=== PATIENT | male | born 1940 | race Caucasian/White ===

== ENCOUNTER 2021-07-17 11:30 | Inpatient (IN) | payer MEDICARE ==
[~2021-07-17] VITALS: Ht 185.4 cm; Wt 76.3 kg
[2021-07-17] MEDS ORDERED: MAG HYDROX/AL HYDROX/SIMETH 30 ML ORAL.SUSP PO PRN (12:00)
[2021-07-17] MEDS ORDERED: ACETAMINOPHEN 325 MG TABLET PO PRN (12:00)
[2021-07-17] MEDS ORDERED: METHYL SALICYLATE/MENTHOL TOPICAL OINTMENT 57GM TUBE. TP PRN (12:00)
[2021-07-17] MEDS ORDERED: MAGNESIUM HYDROXIDE 2,400 MG/30 ML ORAL.SUSP. PO PRN (12:00)
[2021-07-17] MEDS ORDERED: QUET150T2 PO (12:11)
[2021-07-17] MEDS ORDERED: DIVA500T4 PO (12:11)
[2021-07-17 12:21] VITALS: BP 107/63
[2021-07-17 13:49] VITALS: BP 107/63
--- NOTE | 2021-07-17 14:12 | NUR ---
Admission Note with Justification for Admission to [facility] Patient admitted to [facility] for protective oversight for emergency stabilization of acute psychiatric crisis. Pt admitted from: [facility] Mode of arrival: Facility Transport Accompanied By: Facility staff Precipitating behaviors that initiated intake and admission: Hitting and kicking staff, attempting to climb fence to elope, agitation, verbally aggressive, paranoid, refusing showers Description of failure of out patient attempts at stabilization in previous setting list behavior and medication trials: Redirection, jeancarlos, outpatient psych, ED (07/02/21) Behaviors and assessment findings upon admission: Pt admitted and introduced to unit. He has superficial scratches on his bilateral hands d/t digging his fingernails into his skin during his transport to [facility]. He was provided with a boxed lunch and shortly after he retired to bed. He woke briefly for assessment but soon retired back to bed, not wanting to participate. Absent of pain or distress at this time. Absent of disruptive or aggressive behaviors on the unit. Plan: Admit for protective oversight for adjustment and stabilization of medications, behaviors and mood. Intense treatment regimen including groups, medication adjustments, therapy, consistent regimen for ADL's, self care, and sleep hygiene. Daily monitoring by Inpatient staff, Psychiatry, and Medical Physician.
[2021-07-17 15:45] VITALS: BP 107/63
[2021-07-17 16:26] LABS: BASO % 1 % (0-3); EOS # 0.1 x10^3/uL (0.0-0.7); EOS % 2 % (0-3); HEMATOCRIT 33.2 % (39.0-53.0); LYMPH # 1.8 x10^3/uL (1.0-4.8); LYMPH % 28 % (24-48); MEAN CORPUSCULAR HEMOGLOBIN 30 pg (25-35); MEAN CORPUSCULAR HGB CONC 33 g/dL (31-37); MEAN CORPUSCULAR VOLUME 90 fL (79-100); MONO # 0.8 x10^3/uL (0.0-1.1); MONO % 12 % (0-9); NEUT # 3.6 x10^3uL (1.8-7.7); NEUT % 57 % (31-73); PLATELET COUNT 249 x10^3/uL (140-400); RED BLOOD COUNT 3.71 x10^6/uL (4.30-5.70); RED CELL DISTRIBUTION WIDTH 13.9 % (11.5-14.5); WHITE BLOOD COUNT 6.2 x10^3/uL (4.0-11.0)
--- NOTE | 2021-07-17 16:48 | EKG ---
[address] [address] Test Date: 2021-07-17 Test Time: 15:16:36 Pat Name: JULIA SANDERS Department: Room: [address] [place] [address] Gender: M Rn Clinical Review: : 1940 Requested By: YEHUDA BLOOM Order Number: [id number] Reading MD: Donny Morales MD Measurements Intervals [place] Rate: P: MA: QRS: QRSD: T: QT: QTc: Interpretive Statements SR Electronically Signed On 07-19-2021 20:45:38 SOFTWARE DEPLOYMENT ENGINEER by Donny Morales MD
[2021-07-17 17:10] LABS: ALBUMIN 2.8 g/dL (3.4-5.0); ALBUMIN/GLOBULIN RATIO 0.8 (1.0-1.7); ALK PHOS 47 U/L (46-116); ALT (SGPT) 11 U/L (16-63); ANION GAP 7 (6-14); AST (SGOT) 14 U/L (15-37); BLOOD UREA NITROGEN 21 mg/dL (8-26); BUN/CREATININE RATIO 18 (6-20); CALCIUM 8.4 mg/dL (8.5-10.1); CARBON DIOXIDE 29 mmol/L (21-32); CHLORIDE 106 mmol/L (98-107); CREATININE 1.2 mg/dL (0.7-1.3); GFR 58.1; GLUCOSE 97 mg/dL (70-99); MAGNESIUM 2.5 mg/dL (1.8-2.4); POTASSIUM 4.3 mmol/L (3.5-5.1); SODIUM 142 mmol/L (136-145); TOTAL BILIRUBIN 0.2 mg/dL (0.2-1.0); TOTAL PROTEIN 6.2 g/dL (6.4-8.2)
[2021-07-17 17:11] LABS: VAL ACID 75 mcg/mL (50-100)
--- NOTE | 2021-07-17 18:03 | NUR ---
During admission pt refused to permit staff to remove his coat or access pockets. During dinner HOUSE DECORATOR discovered metal dinnerware in pt's coat pocket (fork, knife, spoon). It appears that this is dinnerware from pt's home facility. Dinnerware secured and placed in manila envelope to be placed in facility safe.
[2021-07-17] MEDS ORDERED: traZODone 50 MG TABLET. PO PRN (19:45)
[2021-07-17] MEDS ORDERED: QUEtiapine 50 MG TABLET. PO SCH (21:00)
--- NOTE | 2021-07-17 21:14 | PDOC ---
Exam Note: Сергей Note: Please also refer to the separate dictated note~for this date of service dictated separately.~Patient seen individually. Discussed the patient with Nursing staff reviewed the chart.~Reviewed interim history and current functioning. Reviewed vital signs,~Labs/ Radiology~and current medications noted below. Continue current treatment with the changes noted in the dictated addendum note Assessment: Vital Signs/I&O: Vital Signs Date Time Temp Pulse Resp B/P (MAP) Pulse Ox O2 Delivery O2 Flow Rate FiO2 07/17/21 15:45 98.3 78 20 107/63 (78) 97 07/17/21 12:21 Room Air Labs: Laboratory Tests Test 07/17/21 16:15 White Blood Count 6.2 x10^3/uL (4.0-11.0) Red Blood Count 3.71 x10^6/uL (4.30-5.70) L Hemoglobin 11.0 g/dL (13.0-17.5) L Hematocrit 33.2 % (39.0-53.0) L Mean Corpuscular Volume 90 fL (79-100) Mean Corpuscular Hemoglobin 30 pg (25-35) Mean Corpuscular Hemoglobin Concent 33 g/dL (31-37) Red Cell Distribution Width 13.9 % (11.5-14.5) Platelet Count 249 x10^3/uL (140-400) Neutrophils (%) (Auto) 57 % (31-73) Lymphocytes (%) (Auto) 28 % (24-48) Monocytes (%) (Auto) 12 % (0-9) H Eosinophils (%) (Auto) 2 % (0-3) Basophils (%) (Auto) 1 % (0-3) Neutrophils # (Auto) 3.6 x10^3uL (1.8-7.7) Lymphocytes # (Auto) 1.8 x10^3/uL (1.0-4.8) Monocytes # (Auto) 0.8 x10^3/uL (0.0-1.1) Eosinophils # (Auto) 0.1 x10^3/uL (0.0-0.7) Basophils # (Auto) 0.0 x10^3/uL (0.0-0.2) D-Dimer (Jessica) 2.29 mg/L (0.00-0.50) H Sodium Level 142 mmol/L (136-145) Potassium Level 4.3 mmol/L (3.5-5.1) Chloride Level 106 mmol/L (98-107) Carbon Dioxide Level 29 mmol/L (21-32) Anion Gap 7 (6-14) Blood Urea Nitrogen 21 mg/dL (8-26) Creatinine 1.2 mg/dL (0.7-1.3) Estimated GFR (Cockcroft-Gault) 58.1 BUN/Creatinine Ratio 18 (6-20) Glucose Level 97 mg/dL (70-99) Calcium Level 8.4 mg/dL (8.5-10.1) L Magnesium Level 2.5 mg/dL (1.8-2.4) H Total Bilirubin 0.2 mg/dL (0.2-1.0) Aspartate Amino Transferase (AST) 14 U/L (15-37) L Alanine Aminotransferase (ALT) 11 U/L (16-63) L Alkaline Phosphatase 47 U/L (46-116) Total Protein 6.2 g/dL (6.4-8.2) L Albumin 2.8 g/dL (3.4-5.0) L Albumin/Globulin Ratio 0.8 (1.0-1.7) L Valproic Acid Level 75 mcg/mL (50-100) Valproic Acid Last Dose Date Pending Valproic Acid Last Dose Time Pending Current Medications: I have reviewed the current psychotropics carefully including drug interactions. Risk benefit ratio favors no change other than as noted in my dictated progress note. YEHUDA BLOOM MD Jul 17, 2021 21:14
[2021-07-17] MEDS: DIVALPROEX ER 250 MG TAB.ER.24H. PO SCH (21:36)
--- NOTE | 2021-07-17 22:28 | HP ---
DATE OF SERVICE: 07/17/2021 ADMIT DATE: 07/17/2021 PSYCHIATRIC ADMISSION HISTORY/EVALUATION This note covers elements not covered in my initial note, 07/17. I met with the patient on the evening of 07/17. Previously discussed with Li Buitrago, art coordinator and nursing staff and also discussed with DAPHNE Bill just now. IDENTIFYING DATA: The patient is an 81-year-old male referred to us from [facility] on account of worsening confusion within the context of his diagnosis of major neurocognitive disorder, Alzheimer, vascular with delusion, depression, behavioral disturbance. The patient had been residing at the retirement was hitting and kicking staff. He is attempting to climb the fence and elope. He is agitated, verbally aggressive, paranoid, refusing showers, more confused recently. He had failed outpatient psychiatric interventions. Behaviors were deemed dangerous, unmanageable, having failed outpatient psychiatric interventions. He is referred for inpatient psychiatric stabilization. CHIEF COMPLAINT: "I have been here many weeks." The patient in fact arrived earlier today. HISTORY OF PRESENT ILLNESS: The patient has a history of dementia, Alzheimer's, vascular type. He has been residing at the above retirement for some time. Recently getting more paranoid, confused, agitated with sleep and appetite changes, aggressive, disruptive. Even during the day today, per DAPHNE bill, he was digging his fingernails into his hands, refusing assessment, refusing to let the staff remove the knife and spoon in his pocket that he had been gathered from the dining room. He takes his medications and food. PAST PSYCHIATRIC HISTORY: As above. MEDICAL HISTORY: Anemia, malnutrition. ALLERGIES: Negative. CODE STATUS: Full code. DIET: Regular. MEDICATIONS: He takes crushed and hidden in food. At the facility, he was refusing medications. He ambulates independently. CURRENT PSYCHOTROPICS: Depakote 250 mg b.i.d., Seroquel XR 150 mg daily. FAMILY HISTORY: Noncontributory. SOCIAL HISTORY: No history of alcohol, drug abuse, physical, sexual, elder abuse. He is not known to be a perpetrator. REACTION TO HOSPITALIZATION: The patient oblivious of this. ASSETS: Supportive family, stable living at the retirement. REVIEW OF SYSTEMS: I met with the patient in his room evening of 07/17. No CV, , pulmonary, eye, ENT system symptoms on review. Reliability poor. MENTAL STATUS EXAM: The patient is oriented to himself. Insight, judgment, recent and remote memory, attention, concentration, fund of knowledge poor consistent with his diagnosis. IMPRESSION: Major neurocognitive disorder, Alzheimer, vascular with delusion, depression, behavioral disturbance, anxiety disorder, unspecified; impulse control disorder, unspecified. Rest unchanged from above. PLAN: Admit to Geropsychiatry unit at [facility]. I will see the patient daily individually from a psychiatric standpoint, medical followup, Dr. Scruggs/Dr. Ramirez. Continue patient on his current psychotropics. Observe baseline. Start Zyprexa 2.5 mg q. 2 hours p.r.n., psychosis, agitation, max 10 mg in 24 hours and trazodone 50 mg at bedtime p.r.n. insomnia. We will make further adjustments in psychotropics post-baseline assessment. Valproic acid level is therapeutic at 53. ESTIMATED LENGTH OF STAY: 10-12 days. DISPOSITION PLANS: Back to retirement when stable. ENMANUEL DR: Jose TID: [id number]
[2021-07-18 00:06] LABS: THYROXINE 5.9 ug/dL (4.5-12.0)
--- NOTE | 2021-07-18 04:22 | NUR ---
Nursing Note The patient was located in in the hallway and his room for his assessment and medication pass. The patient was alert to self only. The patient was pleasant during interactions with this nurse. The patient took his medication whole but did have a coughing episode immediately after. Will request a swallow study to be completed. The patient is currently sleeping in his room.
[2021-07-18 05:59] VITALS: BP 112/73
[2021-07-18] MEDS ORDERED: FLU VACC QUAD 21-22 (6MOS+) PF 0.5 ML SYRINGE. VAX IM ONE (09:00)
[2021-07-18] MEDS: DIVALPROEX ER 250 MG TAB.ER.24H. PO SCH ×2 (09:00→09:09)
--- NOTE | 2021-07-18 10:25 | NUR ---
Pt present in the hallway this morning in his w/c. Per GUEST SERVICES LEAD, he was not wanting to eat breakfast and it required GUEST SERVICES LEAD to feed him a few bites until he refused to continue all together. He then complained to this nurse about being "too full" from breakfast. He's been observed to be sleeping on and off in his w/c, no disruptive behaviors observed. This nurse attempted to give pt morning medications crushed and mixed into yogurt, however he refused when informed that medications were in the yogurt. When told it was his morning Depakote he replied, "I don't take that medicine." Will attempt a 2nd medication administration around lunch. Urine sample successfully obtained in a hat, waiting for UA results. Plan of care continues, will pass to next shift.
[2021-07-18 11:40] LABS: THYROID STIM HORMONE (TSH) 2.848 uIU/mL (0.358-3.740)
--- NOTE | 2021-07-18 12:32 | NUR ---
Morning Depakote crushed and mixed into the frosting on pt's dessert during lunch. Pt refused to open his mouth for a bite and attempted to punch CONTINUITY CLERK. Verbal encouragement provided and yet pt refused to take a bite, pt would not speak to staff either. Second attempt at administration unsuccessful.
[2021-07-18 12:35] LABS: BACTERIA,URINE 0 /HPF (0-FEW); BILIRUBIN,URINE NEG (NEG); CLARITY,URINE CLEAR; COLOR,URINE YELLOW; GLUCOSE,URINE NEG (NEG); NITRITE,URINE NEG (NEG); RBC,URINE OCC /HPF (0-2); SQUAMOUS EPITHELIAL CELL,UR OCC /LPF; UROBILINOGEN,URINE 0.2 mg/dL (0.2 mg/dL); WBC,URINE OCC /HPF (0-4)
--- NOTE | 2021-07-18 12:43 | NUR ---
Morning Depakote crushed and administered SL. Pt held mouth-fulls of medication and intentionally spit them at staff. It is unknown how much medication he has received. Addendum: 07/18/21 at 1308 by MICHAEL ONEIL RN While pt was spitting out the medication he was coughing out yellow tinged phlegm.
[2021-07-18 15:11] VITALS: BP 145/75
--- NOTE | 2021-07-18 15:11 | NUR ---
1500 VS: BP 145/75, HR 107, O2 92% RA, T 102.2 Lungs clear to auscultation, pt continues to cough and hack up phlegm. He denies pain and when asked and states he feels as if breathing is difficult. Pt's breathing is even, equal and unlabored. Pt assisted into high fowlers position. PRN Acetaminophen 650 mg crushed and mixed into chocolate pudding. Pt educated on the purpose of the acetaminophen to reduce fever, however pt refuses despite much encouragement by multiple staff. Dr Scruggs notified by this nurse and ordered received for stat CXR and blood cultures. Ordered read back, verified, and entered.
--- NOTE | 2021-07-18 16:13 | RAD ---
EXAM: CHEST 1 VIEW History: New onset fever, productive cough COMPARISON: None available. TECHNIQUE: Single portable radiograph of the chest FINDINGS: The cardiac silhouette is unremarkable. Bilateral apical lung opacification be secondary t o apical scarring or infiltrates not excluded. Mild bibasilar lung airspace opacities likely atelecta sis or infiltrates. . IMPRESSION: 1. Bilateral apical lung opacification be secondary to scarring/fibrosis or infiltrates not excluded . 2. Mild bibasilar lung airspace opacities likely atelectasis or infiltrates. Electronically signed by: Cesar Pack MD (07/18/2021 4:11 PM) [id number]
--- NOTE | 2021-07-18 16:50 | NUR ---
IV initiated, 22 in L FA. 1 attempt, pt tolerated insertion well.
[2021-07-18] MEDS ORDERED: TRAZ-120 PO (16:56)
[2021-07-18] MEDS ORDERED: MAGN400O7 PO (16:57)
[2021-07-18] MEDS ORDERED: OLAN5TAB67 PO (16:57)
[2021-07-18] MEDS ORDERED: MAG30ORA6 PO (16:58)
[2021-07-18] MEDS ORDERED: ACET325T21 PO (16:59)
--- NOTE | 2021-07-18 16:59 | HP ---
DATE OF SERVICE: 07/18/2021 ADMIT DATE: 07/17/2021 HISTORY OF PRESENT ILLNESS: The patient is an 81-year-old male patient, a resident at [facility] in [place], [place], who was transferred to [facility] on account of hitting and kicking staff at times of care, attempted to climb a fence to elope, agitated, verbally aggressive, paranoid, refusing showers. He failed outpatient psychiatric treatment and therefore, he was admitted to [facility] for inpatient psychiatric stabilization. However, when I came to see him, the nursing staff were concerned that the patient has spiked his temperature up to 102.2 Fahrenheit. He was flushed, slightly tachycardic and mild hypoxia. Clinically, he seems to have crackles, mostly on the right side of the chest and we did a chest x-ray, the result of which is still pending at the time of this dictation, the patient was refusing to take any of his medications. He is given a Tylenol to bring his temperature down and therefore, I recommended that the patient be transferred down to 1 South, so he can be started on IV fluid and IV antibiotic to treat his infection after obtaining his blood culture and also apparently his sputum is yellowish in color. PAST MEDICAL HISTORY: Significant for apparently an interstitial lung disease, chronic anemia. The patient also known to have dementia with paranoid delusions. PAST SURGICAL HISTORY: Unremarkable. ALLERGIES: He has no known drug allergies. FAMILY HISTORY: Noncontributory. SOCIAL HISTORY: The patient used to live alone at home. He is currently a long-term care resident in [facility]. His code status is full. PHYSICAL EXAMINATION: GENERAL: When I examined him today, he looked well and was clearly in no apparent respiratory distress; however, he was clearly flushed, but there is no pallor, jaundice, or cyanosis. No lymphadenopathy, no thyromegaly, no jugular venous distention. No lower limb edema. VITAL SIGNS: His heart rate was 107, blood pressure was 145/75, temperature was 102.2, respiratory rate was 20 and oxygen saturation was 92% on room air. HEAD, EYES, EARS, NOSE, AND THROAT: Showed normocephalic, atraumatic. NECK: Supple. HEART: Normal first and second heart sounds. No gallop, rub or murmur. CHEST: Shows central trachea, equally reduced expansion, reduced air entry, vesicular breath sounds with crepitation, mostly on the right side posteriorly. ABDOMEN: Scaphoid, soft, nontender, no guarding or rigidity. No organomegaly. All hernial orifices intact. Bowel sounds normal. NEUROLOGIC: He is demented, but without any obvious lateralizing sign. EXTREMITIES: He has multiple healed and scabbed wounds on his both legs. LABORATORY DATA: His lab work done this morning showed a white cell count of 6200, hemoglobin 11, hematocrit 33, MCV 90 and platelet count 249,000. His chemistry showed a serum sodium 142, potassium 4.3, chloride 106, bicarbonate 29, anion gap of 7, BUN 21, creatinine 1.2. Estimated GFR was 58 mL per minute. His glucose was 97. Hemoglobin A1c was 6%. Calcium was 8.4, magnesium 2.5. His serum iron, TIBC and iron saturation are all consistent with replete iron stores. His total bilirubin, AST, ALT, alkaline phosphatase were normal. Total protein 6.2, albumin 2.8. Serum triglycerides were 105. Total cholesterol 147, LDL was 105, ____, HDL was 21 and ratio was 7. His TSH was 2.848. His total T4 and total T3 were within normal range. His D-dimer was high at 2.29. Urinalysis was essentially unremarkable. His toxic screen showed valproic acid was 75 mcg per mL, which is well within therapeutic range. Chest x-ray was done. Official report is still pending at the time of this dictation. ASSESSMENT AND PLAN: In summary, this is an 81-year-old male patient who probably has aspirated as he was noted to do that yesterday by the nursing staff. He is spiking his temperature up to 102.2. He is having recurrent bouts of cough with yellowish sputum. Chest x-ray suspicious for aspiration pneumonia. My recommendation is to transfer the patient down to 1 South and start him on IV Zosyn at 3.375 grams IV every 6 hours, together with some IV fluid. Once we have the blood cultures and he remains afebrile, we will transfer him back to [facility]. ISAAC/MELISSA/HALLIE DR: Khloe TID: [id number]
[2021-07-18 17:15] LABS: BASO % 0 % (0-3); CALCIUM 8.5 mg/dL (8.5-10.1); EOS % 0 % (0-3); GFR 71.7; HEMATOCRIT 33.4 % (39.0-53.0); HEMOGLOBIN 11.1 g/dL (13.0-17.5); LYMPH % 11 % (24-48); MEAN CORPUSCULAR HEMOGLOBIN 30 pg (25-35); MEAN CORPUSCULAR HGB CONC 33 g/dL (31-37); MEAN CORPUSCULAR VOLUME 89 fL (79-100); MONO % 11 % (0-9); NEUT # 6.9 x10^3uL (1.8-7.7); NEUT % 78 % (31-73); PLATELET COUNT 275 x10^3/uL (140-400); POTASSIUM 4.3 mmol/L (3.5-5.1); RED BLOOD COUNT 3.75 x10^6/uL (4.30-5.70); RED CELL DISTRIBUTION WIDTH 13.6 % (11.5-14.5); WHITE BLOOD COUNT 8.8 x10^3/uL (4.0-11.0)
[2021-07-18 17:20] LABS: ALBUMIN 2.9 g/dL (3.4-5.0); ALBUMIN/GLOBULIN RATIO 0.8 (1.0-1.7); TOTAL BILIRUBIN 0.5 mg/dL (0.2-1.0); TOTAL PROTEIN 6.7 g/dL (6.4-8.2)
[2021-07-18 17:29] LABS: INFLUENZA A PATIENT NEGATIVE (NEGATIVE); INFLUENZA B PATIENT NEGATIVE (NEGATIVE)
--- NOTE | 2021-07-18 18:05 | NUR ---
Transition Record was faxed to follow-up provider with the following elements: Reason for admission, procedures, tests, principal diagnosis, pending studies, patient instructions, 07/03 contact information for unit, phone number to obtain pending test results, plan for follow-up care, physician follow-up, advanced directive information, and medication list with dose, duration and instructions. This information was included in the following documents: History and physical, lab results, study results, progress notes, social work planning form, DC instruction form, patient visit summary, and medication reconciliation form. Date & time record faxed: 07/18/21 [id number] Record faxed to: [facility] ICU Record discussed with/ report given to: Leann SERNA at [facility].
--- NOTE | 2021-07-18 18:06 | NUR ---
Pt to be transferred to [facility] ICU room 2, admitting dx aspiration PNA. Dr Lee notified. Pt's guardian notified of transfer, she verbalized understanding. Report given to Leann SERNA.
--- NOTE | 2021-07-18 21:07 | PDOC ---
Exam Note: Сергей Note: Please also refer to the separate dictated note~for this date of service dictated separately.~Patient seen individually. Discussed the patient with Nursing staff reviewed the chart.~Reviewed interim history and current functioning. Reviewed vital signs,~Labs/ Radiology~and current medications noted below. Continue current treatment with the changes noted in the dictated addendum note Assessment: Vital Signs/I&O: Vital Signs Date Time Temp Pulse Resp B/P (MAP) Pulse Ox O2 Delivery O2 Flow Rate FiO2 07/18/21 15:11 102.2 107 20 145/75 (98) 92 Room Air I & O 07/17/21 07/17/21 07/18/21 15:00 23:00 07:00 Intake Total 0 ml 0 ml Balance 0 ml 0 ml Labs: Laboratory Tests Test 07/18/21 10:05 07/18/21 16:30 07/18/21 16:45 Urine Collection Type Unknown Urine Color Yellow Urine Clarity Clear Urine pH 6.0 Urine Specific [place] 1.020 Urine Protein Neg (NEG-TRACE) Urine Glucose (UA) Neg mg/dL (NEG) Urine Ketones (Stick) Trace mg/dL (NEG) Urine Blood Neg (NEG) Urine Nitrite Neg (NEG) Urine Bilirubin Neg (NEG) Urine Urobilinogen Dipstick 0.2 mg/dL (0.2 mg/dL) Urine Leukocyte Esterase Neg (NEG) Urine RBC Occ /HPF (0-2) Urine WBC Occ /HPF (0-4) Urine Squamous Epithelial Cells Occ /LPF Urine Bacteria 0 /HPF (0-FEW) Urine Mucus Slight /LPF Influenza Type A (Rapid) Negative (NEGATIVE) Influenza Type B (Rapid) Negative (NEGATIVE) White Blood Count 8.8 x10^3/uL (4.0-11.0) Red Blood Count 3.75 x10^6/uL (4.30-5.70) L Hemoglobin 11.1 g/dL (13.0-17.5) L Hematocrit 33.4 % (39.0-53.0) L Mean Corpuscular Volume 89 fL (79-100) Mean Corpuscular Hemoglobin 30 pg (25-35) Mean Corpuscular Hemoglobin Concent 33 g/dL (31-37) Red Cell Distribution Width 13.6 % (11.5-14.5) Platelet Count 275 x10^3/uL (140-400) Neutrophils (%) (Auto) 78 % (31-73) H Lymphocytes (%) (Auto) 11 % (24-48) L Monocytes (%) (Auto) 11 % (0-9) H Eosinophils (%) (Auto) 0 % (0-3) Basophils (%) (Auto) 0 % (0-3) Neutrophils # (Auto) 6.9 x10^3uL (1.8-7.7) Lymphocytes # (Auto) 1.0 x10^3/uL (1.0-4.8) Monocytes # (Auto) 1.0 x10^3/uL (0.0-1.1) Eosinophils # (Auto) 0.0 x10^3/uL (0.0-0.7) Basophils # (Auto) 0.0 x10^3/uL (0.0-0.2) Sodium Level 142 mmol/L (136-145) Potassium Level 4.3 mmol/L (3.5-5.1) Chloride Level 107 mmol/L (98-107) Carbon Dioxide Level 27 mmol/L (21-32) Anion Gap 8 (6-14) Blood Urea Nitrogen 17 mg/dL (8-26) Creatinine 1.0 mg/dL (0.7-1.3) Estimated GFR (Cockcroft-Gault) 71.7 BUN/Creatinine Ratio 17 (6-20) Glucose Level 120 mg/dL (70-99) H Lactic Acid Level 0.8 mmol/L (0.4-2.0) Calcium Level 8.5 mg/dL (8.5-10.1) Total Bilirubin 0.5 mg/dL (0.2-1.0) Aspartate Amino Transferase (AST) 16 U/L (15-37) Alanine Aminotransferase (ALT) 15 U/L (16-63) L Alkaline Phosphatase 52 U/L (46-116) Total Protein 6.7 g/dL (6.4-8.2) Albumin 2.9 g/dL (3.4-5.0) L Albumin/Globulin Ratio 0.8 (1.0-1.7) L Current Medications: Meds: Laboratory Tests Test 07/18/21 10:05 07/18/21 16:30 07/18/21 16:45 Urine Collection Type Unknown Urine Color Yellow Urine Clarity Clear Urine pH 6.0 Urine Specific [place] 1.020 Urine Protein Neg Urine Glucose (UA) Neg mg/dL Urine Ketones (Stick) Trace mg/dL Urine Blood Neg Urine Nitrite Neg Urine Bilirubin Neg Urine Urobilinogen Dipstick 0.2 mg/dL Urine Leukocyte Esterase Neg Urine RBC Occ /HPF Urine WBC Occ /HPF Urine Squamous Epithelial Cells Occ /LPF Urine Bacteria 0 /HPF Urine Mucus Slight /LPF Influenza Type A (Rapid) Negative Influenza Type B (Rapid) Negative White Blood Count 8.8 x10^3/uL Red Blood Count 3.75 x10^6/uL Hemoglobin 11.1 g/dL Hematocrit 33.4 % Mean Corpuscular Volume 89 fL Mean Corpuscular Hemoglobin 30 pg Mean Corpuscular Hemoglobin Concent 33 g/dL Red Cell Distribution Width 13.6 % Platelet Count 275 x10^3/uL Neutrophils (%) (Auto) 78 % Lymphocytes (%) (Auto) 11 % Monocytes (%) (Auto) 11 % Eosinophils (%) (Auto) 0 % Basophils (%) (Auto) 0 % Neutrophils # (Auto) 6.9 x10^3uL Lymphocytes # (Auto) 1.0 x10^3/uL Monocytes # (Auto) 1.0 x10^3/uL Eosinophils # (Auto) 0.0 x10^3/uL Basophils # (Auto) 0.0 x10^3/uL Sodium Level 142 mmol/L Potassium Level 4.3 mmol/L Chloride Level 107 mmol/L Carbon Dioxide Level 27 mmol/L Anion Gap 8 Blood Urea Nitrogen 17 mg/dL Creatinine 1.0 mg/dL Estimated GFR (Cockcroft-Gault) 71.7 BUN/Creatinine Ratio 17 Glucose Level 120 mg/dL Lactic Acid Level 0.8 mmol/L Calcium Level 8.5 mg/dL Total Bilirubin 0.5 mg/dL Aspartate Amino Transf (AST/SGOT) 16 U/L Alanine Aminotransferase (ALT/SGPT) 15 U/L Alkaline Phosphatase 52 U/L Total Protein 6.7 g/dL Albumin 2.9 g/dL Albumin/Globulin Ratio 0.8 Current Medications Medications (Trade) Dose Ordered Sig/Donte Route PRN Reason Start Time Stop Time Status Last Admin Dose Admin Acetaminophen (Tylenol) 650 mg PRN Q6HRS PRN PO MILD PAIN / TEMP > 100.3'F 07/17/21 12:00 07/18/21 18:09 DC Multi-Ingredient Ointment (Analgesic [place]) 1 adrianna PRN QID PRN TP MUSCLE PAIN 07/17/21 12:00 07/18/21 18:09 DC Al Hydroxide/Mg Hydroxide (Mylanta Plus Xs) 15 ml PRN AFTMEALHC PRN PO DYSPEPSIA 07/17/21 12:00 07/18/21 18:09 DC Magnesium Hydroxide (Milk Of Magnesia) 2,400 mg PRN QHS PRN PO CONSTIPATION 07/17/21 12:00 07/18/21 18:09 DC Divalproex Sodium (Depakote Er) 750 mg BID PO 07/17/21 21:00 07/18/21 18:09 DC 07/18/21 09:00 Quetiapine Fumarate (SEROquel) 150 mg HS PO 07/17/21 21:00 07/18/21 18:09 DC 07/17/21 21:36 Influenza Virus Vaccine Quadrival (Flulaval Quad Syringe) 0.5 ml ONCE ONCE VAX IM 07/18/21 09:00 07/18/21 09:01 DC Olanzapine (ZyPREXA ZYDIS) 2.5 mg PRN Q2HRS PRN PO PSYCHOSIS 07/17/21 19:45 07/18/21 18:09 DC Trazodone HCl (Desyrel) 50 mg PRN QHS PRN PO INSOMNIA 07/17/21 19:45 07/18/21 18:09 DC I have reviewed the current psychotropics carefully including drug interactions. Risk benefit ratio favors no change other than as noted in my dictated progress note. Diagnosis: Problems: (1) Major neurocognitive disorder (2) Dementia in Alzheimer's disease with delusions (3) Dementia in Alzheimer's disease with depression (4) Dementia of the Alzheimer's type with early onset with behavioral disturbance (5) Dementia, vascular, with delusions (6) Dementia, vascular, with depression (7) Anxiety disorder, unspecified (8) Impulse control disorder, unspecified YEHUDA BLOOM MD Jul 18, 2021 21:07
[2021-07-19] MEDS ORDERED: MAGN24003 PO (00:50)
--- NOTE | 2021-07-19 22:51 | DS ---
DATE OF DISCHARGE: 07/18/2021 DISCHARGE SUMMARY/PSYCHIATRIC PROGRESS NOTE This is a late entrance, date of service 07/18/2021, covers elements not covered in my initial note, 07/18/2021. REASON FOR ADMISSION: Briefly, the patient is an 81-year-old male referred to us from [facility] on account of worsening confusion within the context of his major neurocognitive disorder, Alzheimer, vascular with delusion, depression, behavioral disturbance. He was hitting and kicking staff, attempting to climb the fence and elope. He is agitated, verbally aggressive, paranoid, refusing showers. He had failed outpatient psychiatric interventions resulting in this referral. SIGNIFICANT FINDINGS AND CLINICAL COURSE: Following admission during this brief stay, the patient was seen daily individually by myself from a psychiatric standpoint, medical followup, Dr. Scruggs/Dr. Ramirez. The patient was continued on his psychotropics. He remained extremely agitated with marked insomnia and psychosis within the context of his dementia. He did develop pneumonia and was transferred to the medical surgical floor on 07/[address] Scruggs. REVIEW OF SYSTEMS: Prior to discharge, no CV, , pulmonary, eye, ENT system symptoms on review. Reliability poor. MENTAL STATUS EXAMINATION: Oriented to himself. Insight, judgment, recent and remote memory, attention, concentration, fund of knowledge poor consistent with his diagnoses. FINAL DIAGNOSES: Major neurocognitive disorder, Alzheimer, vascular with delusion, depression, behavioral disturbance; anxiety disorder, unspecified; impulse control disorder, unspecified; pneumonia. Rest unchanged from admission. DISCHARGE MEDICATIONS: Please refer to the MRAD. Psychiatric and medical followup on the medical surgical floor. Time for discharge day management greater than [address]: Jose TID: [id number]
== END 2021-07-18 18:08 | disposition short-term general hospital (02) | DRG 56 ==
LOC: GEROPSY 11:30
PROVIDERS: ADMIT Psychiatry & Neurology Psychiatry; ATTEND Psychiatry & Neurology Psychiatry
DX: G30.9 Alzheimer's disease, unspecified (principal); F02.81 Dementia in other diseases classified elsewhere, unspecified severity, with behavioral disturbance; J18.9 Pneumonia, unspecified organism; F01.51 Vascular dementia, unspecified severity, with behavioral disturbance; F32.A Depression, unspecified; F41.9 Anxiety disorder, unspecified; F63.9 Impulse disorder, unspecified; G47.00 Insomnia, unspecified; D64.9 Anemia, unspecified
CPT/HCPCS: 36415; 71045; 80053; 80061; 80164; 81001; 82306; 82607; 83036; 83540; 83550; 83605; 83735; 84145; 84436; 84443; 84480; 85025; 85379; 86592; 87040; 87804; 93005

== ENCOUNTER 2021-07-18 17:55 | Inpatient (IN) | payer MEDICARE ==
[~2021-07-18] VITALS: Ht 170.2 cm; Wt 69.2 kg
[~2021-07-18 17:55] MED LIST: ACET325T21 PO; DIVA500T4 PO; MAG30ORA6 PO; MAGN400O7 PO; OLAN5TAB67 PO; QUET150T2 PO; TRAZ-120 PO
[2021-07-18 18:30] VITALS: BP 122/75
--- NOTE | 2021-07-18 18:33 | NUR ---
PATIENT ARRIVED TO THE UNIT VIA WHEELCHAIR ESCORTED BY MICHAEL SERNA AND EILEEN IGLESIAS. PATIENT IS ALERT TO SELF ONLY. PATIENT IS CURRENTLY IN BED WITH WITH SIDE RAILS UP X'S 2 WITH CALL LIGHT IN REACH.
[2021-07-18 18:53] VITALS: BP 104/88
[2021-07-18] MEDS: IV DEXTROSE 5 %-0.45 % NACL 1,000 ML IV SCH (19:00)
[2021-07-18] MEDS ORDERED: IV DEXTROSE 5 %-0.45 % NACL 1,000 ML IV SCH (19:00)
[2021-07-18] MEDS ORDERED: ACETAMINOPHEN 650 MG SUPP.RECT. PR PRN (19:30)
[2021-07-18] MEDS: OLANZapine IM 10 MG VIAL. IM PRN (19:47)
[2021-07-18 21:09] VITALS: BP 96/50
[2021-07-18] MEDS: HALOPERIDOL LACT 5 MG/ML VIAL. IVP PRN (21:32)
[2021-07-19] MEDS ORDERED: PIPERACILLIN/TAZOBACTAM 3.375 GM in IV NORMAL SALINE 50ML 50 ML IV SCH
[2021-07-19] MEDS: PIPERACILLIN/TAZOBACTAM 3.375 GM in IV NORMAL SALINE 50ML 50 ML IV SCH ×4 (00:08→16:25)
--- NOTE | 2021-07-19 00:32 | NUR ---
Pt was trying to get up out of bed several times stating, "Ma'am I have to piss!" Tried to redirect pt and when staff showed him his lyons he states, "That's not my urine!" Pt was pulling on the lyons, IV, and tele leads. Mits were placed d/t not being able to redirect pt and when asked if he would leave the lines alone he yells, "I will not leave them alone! Take these bags off of me." Reassured pt that staff is trying to make him feel better; however, he did not believe staff. Dr. Scruggs was notified of pts agitation and impulsive behavior and orders were given for a prn med d/t the zyprexa only lasting 45 min when given earlier in the night.
[2021-07-19] MEDS ORDERED: MAGN24003 PO (00:50)
[2021-07-19 02:33] VITALS: BP 100/54
[2021-07-19 05:30] VITALS: BP 120/68
[2021-07-19] MEDS: IV DEXTROSE 5 %-0.45 % NACL 1,000 ML IV SCH ×2 (06:16→22:20)
[2021-07-19] MEDS: HALOPERIDOL LACT 5 MG/ML VIAL. IVP PRN (07:07)
[2021-07-19] MEDS: LACTOBACILLUS RHAMNOSUS GG 1 CAPSULE. PO SCH ×2 (07:35→19:27)
[2021-07-19] MEDS: OLANZapine IM 10 MG VIAL. IM PRN ×3 (08:16→16:04)
[2021-07-19 09:18] LABS: BASO % 0 % (0-3); EOS % 0 % (0-3); HEMATOCRIT 32.8 % (39.0-53.0); HEMOGLOBIN 10.8 g/dL (13.0-17.5); LYMPH # 1.5 x10^3/uL (1.0-4.8); LYMPH % 16 % (24-48); MEAN CORPUSCULAR HEMOGLOBIN 30 pg (25-35); MEAN CORPUSCULAR HGB CONC 33 g/dL (31-37); MEAN CORPUSCULAR VOLUME 91 fL (79-100); MONO % 11 % (0-9); NEUT # 6.6 x10^3uL (1.8-7.7); NEUT % 72 % (31-73); PLATELET COUNT 259 x10^3/uL (140-400); RED BLOOD COUNT 3.62 x10^6/uL (4.30-5.70); RED CELL DISTRIBUTION WIDTH 13.8 % (11.5-14.5); WHITE BLOOD COUNT 9.1 x10^3/uL (4.0-11.0)
[2021-07-19 09:28] LABS: ALBUMIN 2.4 g/dL (3.4-5.0); ALBUMIN/GLOBULIN RATIO 0.6 (1.0-1.7); CALCIUM 8.2 mg/dL (8.5-10.1); CREATININE 1.1 mg/dL (0.7-1.3); GFR 64.2; MAGNESIUM 2.6 mg/dL (1.8-2.4); POTASSIUM 3.7 mmol/L (3.5-5.1); TOTAL BILIRUBIN 0.6 mg/dL (0.2-1.0); TOTAL PROTEIN 6.1 g/dL (6.4-8.2)
[2021-07-19 10:04] VITALS: BP 135/67
[2021-07-19] MEDS: ENOXAPARIN 40 MG/0.4 ML SYRINGE. SQ SCH (12:25)
--- NOTE | 2021-07-19 13:26 | PN ---
DATE: 07/19/2021 SUBJECTIVE: The patient is resting, slightly propped up in bed, in no apparent respiratory distress. He is not flushed today, is afebrile. He is maintaining his oxygen saturation at 99% on 2 liters of oxygen. He is afebrile. On questioning him, he stated that he is not feeling well; however, he was unable to be more specific. He continued to have cough, which is mostly dry. PHYSICAL EXAMINATION: GENERAL: When I examined him, he looked well and was clearly in no apparent respiratory distress. He was pale, not jaundiced or cyanosed, no thyromegaly. No jugular venous distention. No limb edema. VITAL SIGNS: His heart rate was 70, blood pressure is 135/67, temperature was 97.8, respiratory rate was 17 and oxygen saturation was 99% on 2 liters of oxygen. HEAD, EYES, EARS, NOSE, AND THROAT: Normocephalic, atraumatic. NECK: Supple. HEART: Normal first and second heart sounds, no gallop or murmur. CHEST: Shows central trachea, equally reduced expansion, reduced air entry, vesicular breath sounds, bilateral basal crepitation. I could not appreciate any rhonchi. ABDOMEN: Scaphoid, soft, nontender. NEUROLOGIC: He was demented, but without any obvious lateralizing sign. All his cranial nerves intact. He moves extremities without difficulty. His intake and output are incompletely recorded. LABORATORY DATA: His lab work this morning showed a white cell count 9000, hemoglobin 11, hematocrit 33, MCV 91, and platelet count 259,000 with normal manual differential. His chemistry showed a serum sodium 142, potassium 3.7, chloride 106, bicarbonate 27, anion gap of 9, BUN 14, creatinine 1.1. Estimated GFR was 64 mL per minute. His glucose was 116, calcium was 8.2, magnesium 2.6. Total bilirubin, AST, ALT, alkaline phosphatase were normal. Total protein 6.1, albumin was 2.4. ASSESSMENT: 1. Acute hypoxic respiratory failure. 2. Aspiration pneumonia. His chest x-ray showed bilateral upper lobe infiltrate and bilateral lower lobe infiltrate. 3. Bilateral apical lung opacification, likely secondary to scarring, fibrosis or infiltrate cannot be excluded. The same thing he has mild bibasilar lung airspace opacities, likely atelectasis or infiltrate. PLAN: My plan is to continue with IV fluid. Continue with IV antibiotic. Continue with oxygen supplementation. I will start him on Lovenox or SCDs for DVT prophylaxis. ISAAC/EVY DR: Khloe TID: [id number]
[2021-07-19 14:19] VITALS: BP 117/69
[2021-07-19] MEDS: HALOPERIDOL LACT 5 MG/ML VIAL. IM PRN (16:03)
--- NOTE | 2021-07-19 17:33 | NUR ---
pt transferred to room 109 at approx 1500. pt became agitated at approx 1535 and code alistair had to be called. C=harge nurse aware of the situation and present. supervisor sample notified as well and present.
[2021-07-19 18:11] VITALS: BP 181/81
[2021-07-19] MEDS: ZIPRASIDONE IM 20 MG VIAL. IM SCH (18:28)
[2021-07-19 18:51] VITALS: BP 105/63
--- NOTE | 2021-07-19 22:49 | PN ---
DATE: 07/19/2021 PSYCHIATRIC PROGRESS NOTE HISTORY OF PRESENT ILLNESS: The patient is an 81-year-old male seen on 1 [facility] medical surgical floor, referred by Dr. Scruggs on account of his agitation, yelling and aggression within the context of his dementia. He has been difficult to redirect despite various PRNs. He was transferred here from [facility] unit where he was admitted with dementia with behavioral disturbance. He developed pneumonia and is being treated on 1 [facility]. I have been asked to consult to make recommendations from a psychiatric standpoint for his agitation. By the time I saw him in the evening, he had received Zyprexa and Geodon PRNs and seemed calmer. A nursing unit coordinator was sitting by his bedside and he has mitts in place. REVIEW OF SYSTEMS: He would not respond to review of systems questions, but agitation is noted. MENTAL STATUS EXAM: Oriented to himself. Insight, judgment, recent and remote memory, attention, concentration, fund of knowledge poor consistent with his diagnosis This was from both direct observation and nursing report. LABORATORY DATA: Reviewed. IMPRESSION: Major neurocognitive disorder, Alzheimer, vascular with delusion, depression, behavioral disturbance; anxiety disorder, unspecified; impulse control disorder, unspecified. PLAN: The patient remains on Haldol IM p.r.n. This has been continued along with Zyprexa IM p.r.n. 2.5 mg q. 4 hours, Geodon 20 mg IM b.i.d. and once the pneumonia stabilizes, we may be able to change the IMs back to oral. If period of agitation persists, we may also use IV or IM Ativan with Haldol combination. We will continue to follow the patient as requested. ENMANUEL DR: Jose TID: [id number]
[2021-07-20] MEDS: PIPERACILLIN/TAZOBACTAM 3.375 GM in IV NORMAL SALINE 50ML 50 ML IV SCH ×5 (00:10→23:28)
[2021-07-20 02:25] VITALS: BP 110/63
[2021-07-20] MEDS: MORPHINE SULFATE 4 MG/ML DISP.SYRIN. IV PRN ×3 (02:27→20:01)
[2021-07-20 05:47] VITALS: BP 108/66
[2021-07-20 06:48] LABS: BASO % 1 % (0-3); EOS # 0.1 x10^3/uL (0.0-0.7); EOS % 2 % (0-3); HEMATOCRIT 31.6 % (39.0-53.0); HEMOGLOBIN 10.3 g/dL (13.0-17.5); LYMPH # 1.8 x10^3/uL (1.0-4.8); LYMPH % 28 % (24-48); MEAN CORPUSCULAR HEMOGLOBIN 30 pg (25-35); MEAN CORPUSCULAR HGB CONC 33 g/dL (31-37); MEAN CORPUSCULAR VOLUME 90 fL (79-100); MONO # 0.8 x10^3/uL (0.0-1.1); MONO % 12 % (0-9); NEUT # 3.8 x10^3uL (1.8-7.7); NEUT % 58 % (31-73); PLATELET COUNT 263 x10^3/uL (140-400); RED BLOOD COUNT 3.49 x10^6/uL (4.30-5.70); RED CELL DISTRIBUTION WIDTH 13.5 % (11.5-14.5); WHITE BLOOD COUNT 6.6 x10^3/uL (4.0-11.0)
[2021-07-20 07:03] LABS: ALBUMIN 2.2 g/dL (3.4-5.0); ALBUMIN/GLOBULIN RATIO 0.6 (1.0-1.7); CALCIUM 7.9 mg/dL (8.5-10.1); CREATININE 1.1 mg/dL (0.7-1.3); GFR 64.2; MAGNESIUM 2.6 mg/dL (1.8-2.4); POTASSIUM 3.8 mmol/L (3.5-5.1); TOTAL BILIRUBIN 0.3 mg/dL (0.2-1.0); TOTAL PROTEIN 5.8 g/dL (6.4-8.2)
--- NOTE | 2021-07-20 07:43 | PDOC ---
Exam Note: Сергей Note: Late entry for 07/19/2021. Please also refer to the separate dictated note~for this date of service dictated separately.~Patient seen individually. Discussed the patient with Nursing staff reviewed the chart.~Reviewed interim history and current functioning. Reviewed vital signs,~Labs/ Radiology~and current medic ations noted below. Continue current treatment with the changes noted in the dictated addendum note Assessment: Vital Signs/I&O: Vital Signs Date Time Temp Pulse Resp B/P (MAP) Pulse Ox O2 Delivery O2 Flow Rate FiO2 07/20/21 05:47 97.6 67 18 108/66 (80) 100 Room Air 07/20/21 02:57 2.0 I & O 07/19/21 07/19/21 07/20/21 14:59 22:59 06:59 Intake Total 375 ml 150 ml 0 ml Output Total 400 ml 600 ml Balance -25 ml 150 ml -600 ml Labs: Laboratory Tests Test 07/19/21 08:14 07/20/21 05:50 White Blood Count 9.1 x10^3/uL (4.0-11.0) 6.6 x10^3/uL (4.0-11.0) Red Blood Count 3.62 x10^6/uL (4.30-5.70) L 3.49 x10^6/uL (4.30-5.70) L Hemoglobin 10.8 g/dL (13.0-17.5) L 10.3 g/dL (13.0-17.5) L Hematocrit 32.8 % (39.0-53.0) L 31.6 % (39.0-53.0) L Mean Corpuscular Volume 91 fL (79-100) 90 fL (79-100) Mean Corpuscular Hemoglobin 30 pg (25-35) 30 pg (25-35) Mean Corpuscular Hemoglobin Concent 33 g/dL (31-37) 33 g/dL (31-37) Red Cell Distribution Width 13.8 % (11.5-14.5) 13.5 % (11.5-14.5) Platelet Count 259 x10^3/uL (140-400) 263 x10^3/uL (140-400) Neutrophils (%) (Auto) 72 % (31-73) 58 % (31-73) Lymphocytes (%) (Auto) 16 % (24-48) L 28 % (24-48) Monocytes (%) (Auto) 11 % (0-9) H 12 % (0-9) H Eosinophils (%) (Auto) 0 % (0-3) 2 % (0-3) Basophils (%) (Auto) 0 % (0-3) 1 % (0-3) Neutrophils # (Auto) 6.6 x10^3uL (1.8-7.7) 3.8 x10^3uL (1.8-7.7) Lymphocytes # (Auto) 1.5 x10^3/uL (1.0-4.8) 1.8 x10^3/uL (1.0-4.8) Monocytes # (Auto) 1.0 x10^3/uL (0.0-1.1) 0.8 x10^3/uL (0.0-1.1) Eosinophils # (Auto) 0.0 x10^3/uL (0.0-0.7) 0.1 x10^3/uL (0.0-0.7) Basophils # (Auto) 0.0 x10^3/uL (0.0-0.2) 0.0 x10^3/uL (0.0-0.2) Sodium Level 142 mmol/L (136-145) 143 mmol/L (136-145) Potassium Level 3.7 mmol/L (3.5-5.1) 3.8 mmol/L (3.5-5.1) Chloride Level 106 mmol/L (98-107) 108 mmol/L (98-107) H Carbon Dioxide Level 27 mmol/L (21-32) 29 mmol/L (21-32) Anion Gap 9 (6-14) 6 (6-14) Blood Urea Nitrogen 14 mg/dL (8-26) 10 mg/dL (8-26) Creatinine 1.1 mg/dL (0.7-1.3) 1.1 mg/dL (0.7-1.3) Estimated GFR (Cockcroft-Gault) 64.2 64.2 BUN/Creatinine Ratio 13 (6-20) 9 (6-20) Glucose Level 116 mg/dL (70-99) H 130 mg/dL (70-99) H Calcium Level 8.2 mg/dL (8.5-10.1) L 7.9 mg/dL (8.5-10.1) L Magnesium Level 2.6 mg/dL (1.8-2.4) H 2.6 mg/dL (1.8-2.4) H Total Bilirubin 0.6 mg/dL (0.2-1.0) 0.3 mg/dL (0.2-1.0) Aspartate Amino Transferase (AST) 15 U/L (15-37) 23 U/L (15-37) Alanine Aminotransferase (ALT) 10 U/L (16-63) L 15 U/L (16-63) L Alkaline Phosphatase 48 U/L (46-116) 41 U/L (46-116) L Total Protein 6.1 g/dL (6.4-8.2) L 5.8 g/dL (6.4-8.2) L Albumin 2.4 g/dL (3.4-5.0) L 2.2 g/dL (3.4-5.0) L Albumin/Globulin Ratio 0.6 (1.0-1.7) L 0.6 (1.0-1.7) L Current Medications: Meds: Laboratory Tests Test 07/19/21 08:14 07/20/21 05:50 White Blood Count 9.1 x10^3/uL 6.6 x10^3/uL Red Blood Count 3.62 x10^6/uL 3.49 x10^6/uL Hemoglobin 10.8 g/dL 10.3 g/dL Hematocrit 32.8 % 31.6 % Mean Corpuscular Volume 91 fL 90 fL Mean Corpuscular Hemoglobin 30 pg 30 pg Mean Corpuscular Hemoglobin Concent 33 g/dL 33 g/dL Red Cell Distribution Width 13.8 % 13.5 % Platelet Count 259 x10^3/uL 263 x10^3/uL Neutrophils (%) (Auto) 72 % 58 % Lymphocytes (%) (Auto) 16 % 28 % Monocytes (%) (Auto) 11 % 12 % Eosinophils (%) (Auto) 0 % 2 % Basophils (%) (Auto) 0 % 1 % Neutrophils # (Auto) 6.6 x10^3uL 3.8 x10^3uL Lymphocytes # (Auto) 1.5 x10^3/uL 1.8 x10^3/uL Monocytes # (Auto) 1.0 x10^3/uL 0.8 x10^3/uL Eosinophils # (Auto) 0.0 x10^3/uL 0.1 x10^3/uL Basophils # (Auto) 0.0 x10^3/uL 0.0 x10^3/uL Sodium Level 142 mmol/L 143 mmol/L Potassium Level 3.7 mmol/L 3.8 mmol/L Chloride Level 106 mmol/L 108 mmol/L Carbon Dioxide Level 27 mmol/L 29 mmol/L Anion Gap 9 6 Blood Urea Nitrogen 14 mg/dL 10 mg/dL Creatinine 1.1 mg/dL 1.1 mg/dL Estimated GFR (Cockcroft-Gault) 64.2 64.2 BUN/Creatinine Ratio 13 9 Glucose Level 116 mg/dL 130 mg/dL Calcium Level 8.2 mg/dL 7.9 mg/dL Magnesium Level 2.6 mg/dL 2.6 mg/dL Total Bilirubin 0.6 mg/dL 0.3 mg/dL Aspartate Amino Transf (AST/SGOT) 15 U/L 23 U/L Alanine Aminotransferase (ALT/SGPT) 10 U/L 15 U/L Alkaline Phosphatase 48 U/L 41 U/L Total Protein 6.1 g/dL 5.8 g/dL Albumin 2.4 g/dL 2.2 g/dL Albumin/Globulin Ratio 0.6 0.6 Current Medications Medications (Trade) Dose Ordered Sig/Donte Route PRN Reason Start Time Stop Time Status Last Admin Dose Admin Dextrose/Sodium Chloride 1,000 ml @ 75 mls/hr [id number] IV 07/18/21 19:00 07/19/21 00:31 DC Piperacillin Sod/ Tazobactam Sod 3.375 gm/Sodium Chloride 50 ml @ 100 mls/hr Q6HRS IV 07/19/21 00:00 07/20/21 05:45 Dextrose/Sodium Chloride 1,000 ml @ 75 mls/hr [id number] IV 07/18/21 19:30 07/19/21 22:20 Piperacillin Sod/ Tazobactam Sod 3.375 gm/Sodium Chloride 50 ml @ 100 mls/hr Q6HRS IV 07/19/21 00:00 UNV Olanzapine (ZyPREXA IM) 2.5 mg PRN Q4HRS PRN IM 1ST CHOICE AGITATION 07/18/21 19:30 07/19/21 16:04 Acetaminophen (Tylenol Supp) 650 mg PRN Q6HRS PRN OR MILD PAIN / TEMP > 100.3'F 07/18/21 19:30 07/18/21 19:47 Haloperidol Lactate (Haldol) 5 mg PRN Q4HRS PRN IVP 2ND CHOICE AGITATION 07/18/21 21:00 07/19/21 11:58 DC 07/19/21 07:07 Influenza Virus Vaccine Quadrival (Flulaval Quad 1208-4017 Syringe) 0.5 ml ONCE ONCE VAX IM 07/20/21 09:00 07/20/21 09:01 Lactobacillus Rhamnosus (Culturelle) 1 cap BID PO 07/19/21 09:00 Enoxaparin Sodium (Lovenox 40mg Syringe) 40 mg Q24H SQ 07/19/21 12:00 07/19/21 12:25 Haloperidol Lactate (Haldol) 5 mg PRN Q4HRS PRN IM 2ND CHOICE AGITATION 07/19/21 11:58 07/19/21 16:03 Morphine Sulfate (Morphine 4mg Syringe) 4 mg PRN Q4HRS PRN IV PAIN 07/19/21 18:15 07/20/21 02:27 Ziprasidone (Geodon Im) 20 mg BID IM 07/19/21 19:00 07/19/21 18:28 Current Medications Medications (Trade) Dose Ordered Sig/Donte Route PRN Reason Start Time Stop Time Status Last Admin Dose Admin Enoxaparin Sodium (Lovenox 40mg Syringe) 40 mg Q24H SQ 07/19/21 12:00 07/19/21 12:25 Haloperidol Lactate (Haldol) 5 mg PRN Q4HRS PRN IM 2ND CHOICE AGITATION 07/19/21 11:58 07/19/21 16:03 Morphine Sulfate (Morphine 4mg Syringe) 4 mg PRN Q4HRS PRN IV PAIN 07/19/21 18:15 07/20/21 02:27 Ziprasidone (Geodon Im) 20 mg BID IM 07/19/21 19:00 07/19/21 18:28 I have reviewed the current psychotropics carefully including drug interactions. Risk benefit ratio favors no change other than as noted in my dictated progress note. Diagnosis: Problems: (1) Impulse control disorder, unspecified (2) Anxiety disorder, unspecified (3) Dementia, vascular, with depression (4) Dementia, vascular, with delusions (5) Dementia in Alzheimer's disease with depression (6) Dementia in Alzheimer's disease with delusions (7) Dementia of the Alzheimer's type with early onset with behavioral disturbance (8) Major neurocognitive disorder YEHUDA BLOOM MD Jul 20, 2021 07:43
[2021-07-20] MEDS: IV DEXTROSE 5 %-0.45 % NACL 1,000 ML IV SCH ×2 (08:55→23:23)
[2021-07-20] MEDS ORDERED: FLU VACC QUAD 21-22 (6MOS+) PF 0.5 ML SYRINGE. VAX IM ONE (09:00)
[2021-07-20] MEDS: LACTOBACILLUS RHAMNOSUS GG 1 CAPSULE. PO SCH ×2 (09:00→20:01)
[2021-07-20] MEDS: ZIPRASIDONE IM 20 MG VIAL. IM SCH ×2 (09:00→20:00)
--- NOTE | 2021-07-20 09:31 | HP ---
DATE OF SERVICE: 07/18/2021 ADMIT DATE: 07/18/2021 HISTORY OF PRESENT ILLNESS: The patient is an 81-year-old male patient, a resident at [facility] in [place], [place], who was transferred to [facility] on account of hitting and kicking staff at times of care, attempted to climb a fence to elope, agitated, verbally aggressive, paranoid, refusing showers. He failed outpatient psychiatric treatment and therefore, he was admitted to [facility] for inpatient psychiatric stabilization. However, when I came to see him, the nursing staff were concerned that the patient has spiked his temperature up to 102.2 Fahrenheit. He was flushed, slightly tachycardic and mild hypoxia. Clinically, he seems to have crackles, mostly on the right side of the chest and we did a chest x-ray, the result of which is still pending at the time of this dictation, the patient was refusing to take any of his medications. He is given a Tylenol to bring his temperature down and therefore, I recommended that the patient be transferred down to 1 [facility], so he can be started on IV fluid and IV antibiotic to treat his infection after obtaining his blood culture and also apparently his sputum is yellowish in color. PAST MEDICAL HISTORY: Significant for apparently an interstitial lung disease, chronic anemia. The patient also known to have dementia with paranoid delusions. PAST SURGICAL HISTORY: Unremarkable. ALLERGIES: He has no known drug allergies. FAMILY HISTORY: Noncontributory. SOCIAL HISTORY: The patient used to live alone at home. He is currently a long-term care resident in [facility]. His code status is full. PHYSICAL EXAMINATION: GENERAL: When I examined him today, he looked well and was clearly in no apparent respiratory distress; however, he was clearly flushed, but there is no pallor, jaundice, or cyanosis. No lymphadenopathy, no thyromegaly, no jugular venous distention. No lower limb edema. VITAL SIGNS: His heart rate was 107, blood pressure was 145/75, temperature was 102.2, respiratory rate was 20 and oxygen saturation was 92% on room air. HEAD, EYES, EARS, NOSE, AND THROAT: Showed normocephalic, atraumatic. NECK: Supple. HEART: Normal first and second heart sounds. No gallop, rub or murmur. CHEST: Shows central trachea, equally reduced expansion, reduced air entry, vesicular breath sounds with crepitation, mostly on the right side posteriorly. ABDOMEN: Scaphoid, soft, nontender, no guarding or rigidity. No organomegaly. All hernial orifices intact. Bowel sounds normal. NEUROLOGIC: He is demented, but without any obvious lateralizing sign. EXTREMITIES: He has multiple healed and scabbed wounds on his both legs. LABORATORY DATA: His lab work done this morning showed a white cell count of 6200, hemoglobin 11, hematocrit 33, MCV 90 and platelet count 249,000. His chemistry showed a serum sodium 142, potassium 4.3, chloride 106, bicarbonate 29, anion gap of 7, BUN 21, creatinine 1.2. Estimated GFR was 58 mL per minute. His glucose was 97. Hemoglobin A1c was 6%. Calcium was 8.4, magnesium 2.5. His serum iron, TIBC and iron saturation are all consistent with replete iron stores. His total bilirubin, AST, ALT, alkaline phosphatase were normal. Total protein 6.2, albumin 2.8. Serum triglycerides were 105. Total cholesterol 147, LDL was 105, ____, HDL was 21 and ratio was 7. His TSH was 2.848. His total T4 and total T3 were within normal range. His D-dimer was high at 2.29. Urinalysis was essentially unremarkable. His toxic screen showed valproic acid was 75 mcg per mL, which is well within therapeutic range. Chest x-ray was done. Official report is still pending at the time of this dictation. ASSESSMENT AND PLAN: In summary, this is an 81-year-old male patient who probably has aspirated as he was noted to do that yesterday by the nursing staff. He is spiking his temperature up to 102.2. He is having recurrent bouts of cough with yellowish sputum. Chest x-ray suspicious for aspiration pneumonia. My recommendation is to transfer the patient down to [facility] and start him on IV Zosyn at 3.375 grams IV every 6 hours, together with some IV fluid. Once we have the blood cultures and he remains afebrile, we will transfer him back to [facility]. ISAAC/MELISSA/HALLIE DR: Khloe TID: [id number]
[2021-07-20] MEDS: ENOXAPARIN 40 MG/0.4 ML SYRINGE. SQ SCH (12:00)
[2021-07-20 15:33] VITALS: BP 148/79
[2021-07-20 19:00] VITALS: BP 138/75
[2021-07-21] MEDS: MORPHINE SULFATE 4 MG/ML DISP.SYRIN. IV PRN ×2 (04:09→16:41)
[2021-07-21 05:00] VITALS: BP 130/75
[2021-07-21] MEDS: PIPERACILLIN/TAZOBACTAM 3.375 GM in IV NORMAL SALINE 50ML 50 ML IV SCH ×4 (05:53→23:20)
[2021-07-21 06:45] LABS: BASO % 1 % (0-3); EOS # 0.1 x10^3/uL (0.0-0.7); EOS % 3 % (0-3); HEMATOCRIT 31.8 % (39.0-53.0); HEMOGLOBIN 10.4 g/dL (13.0-17.5); LYMPH # 1.5 x10^3/uL (1.0-4.8); LYMPH % 33 % (24-48); MEAN CORPUSCULAR HEMOGLOBIN 30 pg (25-35); MEAN CORPUSCULAR HGB CONC 33 g/dL (31-37); MEAN CORPUSCULAR VOLUME 91 fL (79-100); MONO # 0.5 x10^3/uL (0.0-1.1); MONO % 11 % (0-9); NEUT # 2.5 x10^3uL (1.8-7.7); NEUT % 53 % (31-73); PLATELET COUNT 302 x10^3/uL (140-400); RED BLOOD COUNT 3.51 x10^6/uL (4.30-5.70); RED CELL DISTRIBUTION WIDTH 13.6 % (11.5-14.5); WHITE BLOOD COUNT 4.7 x10^3/uL (4.0-11.0)
[2021-07-21 07:05] LABS: ALBUMIN 2.2 g/dL (3.4-5.0); ALBUMIN/GLOBULIN RATIO 0.6 (1.0-1.7); GFR 71.7; MAGNESIUM 2.5 mg/dL (1.8-2.4); POTASSIUM 3.7 mmol/L (3.5-5.1); TOTAL BILIRUBIN 0.3 mg/dL (0.2-1.0); TOTAL PROTEIN 5.9 g/dL (6.4-8.2)
[2021-07-21] MEDS: ZIPRASIDONE IM 20 MG VIAL. IM SCH ×2 (09:00→21:00)
[2021-07-21] MEDS: LACTOBACILLUS RHAMNOSUS GG 1 CAPSULE. PO SCH ×2 (09:00→21:00)
--- NOTE | 2021-07-21 09:21 | PN ---
DATE: 07/20/2021 SUBJECTIVE: The patient is resting, slightly propped up in bed, in no apparent distress. He is definitely more awake, alert, responding appropriately. He obviously has confusion due to underlying dementia, continued to be agitated, restless, requiring mittens on both hands and has required Haldol and even Geodon last night. PHYSICAL EXAMINATION: GENERAL: However when I saw him this morning, he looked well and was clearly in no apparent respiratory distress. He was pale. No jaundice, cyanosis or thyromegaly. No jugular venous distention. No limb edema. VITAL SIGNS: His heart rate was 67, blood pressure is 108/66, temperature was 97.8, respiratory rate was 18 and oxygen saturation was 100% on room air. HEAD, EYES, EARS, NOSE AND THROAT: Normocephalic, atraumatic. NECK: Supple. HEART: Normal first and second heart sounds, no gallop or murmur. CHEST: Shows central trachea, equal bilateral chest expansion, air entry, vesicular breath sounds with bilateral basal crepitation, no rhonchi. ABDOMEN: Scaphoid, soft, nontender. NEUROLOGIC: He is demented without any obvious lateralizing sign. His intake over the last 24 hours and output are incompletely recorded. LABORATORY DATA: This morning showed a white cell count of 6600, hemoglobin 10, hematocrit 32, MCV 90 and platelet count of 263,000. His chemistry showed a serum sodium 143, potassium 3.8, chloride 108, bicarbonate 29, anion gap of 6, BUN 10, creatinine 1.1. Estimated GFR was 64 mL per minute. His glucose 130, calcium was 7.6, magnesium was 2.6. Total bilirubin, AST, ALT, alkaline phosphatase were normal. Total protein 5.8, albumin 2.2. ASSESSMENT: 1. Acute hypoxic respiratory failure. 2. Aspiration pneumonia. 3. Interstitial lung disease. 4. Chronic anemia. 5. Dementia with paranoid delusion. 6. Severe protein-calorie malnutrition. Serum albumin is 2.2. PLAN: My plan is to remove the Garcia catheter and consult physical and occupational therapy and if his cultures remain negative, we will switch him to oral Augmentin and discharge him back to [facility] tomorrow. ISAAC/NOAH/JOI DR: Khloe TID: [id number]
[2021-07-21 10:19] VITALS: BP 134/75
[2021-07-21] MEDS: ENOXAPARIN 40 MG/0.4 ML SYRINGE. SQ SCH (12:19)
[2021-07-21] MEDS: HALOPERIDOL LACT 5 MG/ML VIAL. IM PRN (13:11)
[2021-07-21 14:07] VITALS: BP 144/75
[2021-07-21 14:09] VITALS: BP 133/66
[2021-07-21] MEDS: IV DEXTROSE 5 %-0.45 % NACL 1,000 ML IV SCH (14:10)
[2021-07-21] MEDS ORDERED: AA 4.25 %/CALCIUM/LYTES/D5W 1,000 ML IV SCH (14:30)
[2021-07-21] MEDS: AA 4.25 %/CALCIUM/LYTES/D5W 2,000 ML IV SCH (16:53)
[2021-07-21 23:40] VITALS: BP 159/80
[2021-07-22 05:48] VITALS: BP 156/76
[2021-07-22] MEDS: PIPERACILLIN/TAZOBACTAM 3.375 GM in IV NORMAL SALINE 50ML 50 ML IV SCH ×3 (06:15→17:27)
[2021-07-22 06:17] LABS: BASO % 1 % (0-3); EOS # 0.1 x10^3/uL (0.0-0.7); EOS % 3 % (0-3); HEMATOCRIT 31.6 % (39.0-53.0); HEMOGLOBIN 10.5 g/dL (13.0-17.5); LYMPH # 1.7 x10^3/uL (1.0-4.8); LYMPH % 29 % (24-48); MEAN CORPUSCULAR HEMOGLOBIN 30 pg (25-35); MEAN CORPUSCULAR HGB CONC 33 g/dL (31-37); MEAN CORPUSCULAR VOLUME 90 fL (79-100); MONO # 0.6 x10^3/uL (0.0-1.1); MONO % 10 % (0-9); NEUT # 3.3 x10^3uL (1.8-7.7); NEUT % 57 % (31-73); PLATELET COUNT 315 x10^3/uL (140-400); RED BLOOD COUNT 3.51 x10^6/uL (4.30-5.70); RED CELL DISTRIBUTION WIDTH 13.4 % (11.5-14.5); WHITE BLOOD COUNT 5.7 x10^3/uL (4.0-11.0)
[2021-07-22 06:21] LABS: ALBUMIN 2.2 g/dL (3.4-5.0); ALBUMIN/GLOBULIN RATIO 0.6 (1.0-1.7); CALCIUM 8.3 mg/dL (8.5-10.1); CREATININE 0.9 mg/dL (0.7-1.3); MAGNESIUM 2.4 mg/dL (1.8-2.4); POTASSIUM 3.9 mmol/L (3.5-5.1); TOTAL BILIRUBIN 0.3 mg/dL (0.2-1.0); TOTAL PROTEIN 5.9 g/dL (6.4-8.2)
--- NOTE | 2021-07-22 06:23 | NUR ---
Pt rested through much of the night with 1:1 sitter at bedside. Pt awoke intermittently, attempting to disrobe and pull at lyons. Mits in place to protect lines. Pt is delusional, but easily redirects. Remains NPO due to failed swallow study. Clinimix infusing at 80ml/hr per order.
[2021-07-22] MEDS: LACTOBACILLUS RHAMNOSUS GG 1 CAPSULE. PO SCH ×2 (08:21→20:09)
[2021-07-22] MEDS: ZIPRASIDONE IM 20 MG VIAL. IM SCH ×2 (08:22→20:09)
--- NOTE | 2021-07-22 09:19 | PN ---
DATE: 07/22/2021 ATTENDING PHYSICIAN: Dr. Scruggs. SUBJECTIVE: The patient remains confused and agitated. He is requiring a 24-hour bedside patient security public safety officer. He is a high risk for aspiration. He has been kept n.p.o. He is getting Clinimix as well as antibiotics right now. OBJECTIVE FINDINGS: VITAL SIGNS: Blood pressure this morning is 159/80, pulse is 60 and regular. He is afebrile. Oxygen saturation 97% on room air. HEENT: Head is without trauma. Pupils are reactive. Sclerae nonicteric. Oropharynx is clear. NECK: Supple. LUNGS: Shallow respirations. CARDIOVASCULAR: Shows regular heart tones. ABDOMEN: Soft. There is no guarding or rebound tenderness. NEUROLOGIC FINDINGS: Profound confusion. He has no focal deficits. LABORATORY DATA: Reviewed. ASSESSMENT: 1. Acute hypoxemic respiratory failure. 2. Aspiration pneumonia. 3. Interstitial lung disease. 4. Chronic obstructive pulmonary disease. 5. Chronic anemia. 6. Profound dementia with agitation and paranoia. 7. Severe protein calorie malnutrition. PLAN: 1. Continue antibiotics. 2. We are trying to get a court authorization for DNR status. 3. Working on placement back to his shelter. 4. Continue antibiotics. RAHAT DR: Ovidio TID: [id number]
--- NOTE | 2021-07-22 09:34 | PN ---
DATE: 07/21/2021 SUBJECTIVE: The patient is resting, slightly propped up in bed, in no apparent respiratory distress. He is awake, alert. On questioning him, he denied any complaint. The nursing staff did not voice any concern except that he was seen by the speech therapist who said that he is a very high risk for aspiration, should be n.p.o. PHYSICAL EXAMINATION: GENERAL: When I examined him, he looked well and was clearly in no apparent respiratory distress. No pallor, jaundice, cyanosis, or thyromegaly. No jugular venous distention. No lower limb edema. VITAL SIGNS: His heart rate was 67, blood pressure is 133/66, temperature was 98.2, respiratory rate was 18 and oxygen saturation was 97%. HEAD, EYES, EARS, NOSE, AND THROAT: Normocephalic, atraumatic. NECK: Supple. HEART: Normal first and second heart sounds. No gallop, rub or murmur. CHEST: Shows central trachea, equal bilateral chest expansion, air entry, vesicular breath sounds with crepitation mostly ____ posteriorly. No rhonchi. ABDOMEN: Scaphoid, soft, nontender. NEUROLOGIC: He is demented without any obvious lateralizing sign. His intake was 525, output was 1000. LABORATORY DATA: This morning showed a white cell count of 4700, hemoglobin 10, hematocrit 31, MCV 91, and platelet count 302,000. His chemistry showed a serum sodium 143, potassium 3.7, chloride 108, bicarbonate 28, anion gap of 7, BUN 8, creatinine 1, estimated GFR was 71 mL per minute. His glucose 113, calcium was 8, magnesium was 2.5. Total bilirubin, AST, ALT, alkaline phosphatase were normal. Total protein 5.9, albumin 2.2. ASSESSMENT: 1. Acute hypoxic respiratory failure. 2. Aspiration pneumonia for which he is on IV Zosyn. 3. Dysphagia with recurrent aspiration. 4. Interstitial lung disease. 5. Chronic anemia. 6. Dementia with paranoid delusion. 7. Severe protein-calorie malnutrition. Serum albumin 2.2. PLAN: To continue with IV antibiotic. Unfortunately, he was deemed high risk of aspiration, was kept n.p.o. by the speech therapist and therefore, we are going to continue with IV antibiotic. I will switch him to PPN. Meanwhile, continue with physical and occupational and speech therapy. AMM/EKT/ANI DR: Khloe TID: [id number]
[2021-07-22 10:21] VITALS: BP 145/74
[2021-07-22] MEDS: OLANZapine IM 10 MG VIAL. IM PRN (11:11)
[2021-07-22] MEDS: ENOXAPARIN 40 MG/0.4 ML SYRINGE. SQ SCH (11:43)
--- NOTE | 2021-07-22 14:11 | NUR ---
Nursing notes PT in bed, alert and oriented x1, lungs clear and vitals within normal range for PT. Electrolytes infusing, Zosyn and Lovenox administered. PT assessed by doctor and medications to be continued per doctors orders. PT was able to ambulated around the floor with aid from Physical therapy. PT back in bed, call light within reach, bed low, PT on 1 x 1 observation. Will continue to monitor.
[2021-07-22 14:20] VITALS: BP 137/83
[2021-07-22] MEDS: AA 4.25 %/CALCIUM/LYTES/D5W 2,000 ML IV SCH (16:00)
[2021-07-22 19:00] VITALS: BP 125/65
[2021-07-22 23:00] VITALS: BP 135/76
[2021-07-23] MEDS: PIPERACILLIN/TAZOBACTAM 3.375 GM in IV NORMAL SALINE 50ML 50 ML IV SCH ×4 (00:19→17:39)
--- NOTE | 2021-07-23 06:53 | PDOC ---
Exam Note: Сергей Note: Late entry for 07/21/2021. Please also refer to the separate dictated note~for this date of service dictated separately.~Patient seen individually. Discussed the patient with Nursing staff reviewed the chart.~Reviewed interim history and current functioning. Reviewed vital signs,~Labs/ Radiology~and current medic ations noted below. Continue current treatment with the changes noted in the dictated addendum note Assessment: Vital Signs/I&O: Vital Signs Date Time Temp Pulse Resp B/P (MAP) Pulse Ox O2 Delivery O2 Flow Rate FiO2 07/22/21 23:00 97.7 73 18 135/76 (95) 100 Room Air 07/21/21 17:11 2.0 I & O 07/22/21 07/22/21 07/23/21 15:00 23:00 07:00 Intake Total 0 ml 0 ml 50 ml Output Total 1950 ml 400 ml 1150 ml Balance -1950 ml -400 ml -1100 ml Current Medications: Meds: Current Medications Medications (Trade) Dose Ordered Sig/Donte Route PRN Reason Start Time Stop Time Status Last Admin Dose Admin Dextrose/Sodium Chloride 1,000 ml @ 75 mls/hr [id number] IV 07/18/21 19:00 07/19/21 00:31 DC Piperacillin Sod/ Tazobactam Sod 3.375 gm/Sodium Chloride 50 ml @ 100 mls/hr Q6HRS IV 07/19/21 00:00 07/23/21 06:15 Dextrose/Sodium Chloride 1,000 ml @ 75 mls/hr [id number] IV 07/18/21 19:30 07/21/21 14:29 DC 07/21/21 14:10 Piperacillin Sod/ Tazobactam Sod 3.375 gm/Sodium Chloride 50 ml @ 100 mls/hr Q6HRS IV 07/19/21 00:00 UNV Olanzapine (ZyPREXA IM) 2.5 mg PRN Q4HRS PRN IM 1ST CHOICE AGITATION 07/18/21 19:30 07/22/21 11:11 Acetaminophen (Tylenol Supp) 650 mg PRN Q6HRS PRN [place] MILD PAIN / TEMP > 100.3'F 07/18/21 19:30 07/18/21 19:47 Haloperidol Lactate (Haldol) 5 mg PRN Q4HRS PRN IVP 2ND CHOICE AGITATION 07/18/21 21:00 07/19/21 11:58 DC 07/19/21 07:07 Influenza Virus Vaccine Quadrival (Flulaval Quad Syringe) 0.5 ml ONCE ONCE VAX IM 07/20/21 09:00 07/20/21 09:01 DC Lactobacillus Rhamnosus (Culturelle) 1 cap BID PO 07/19/21 09:00 07/20/21 20:01 Enoxaparin Sodium (Lovenox 40mg Syringe) 40 mg Q24H SQ 07/19/21 12:00 07/22/21 11:43 Haloperidol Lactate (Haldol) 5 mg PRN Q4HRS PRN IM 2ND CHOICE AGITATION 07/19/21 11:58 07/21/21 13:11 Morphine Sulfate (Morphine 4mg Syringe) 4 mg PRN Q4HRS PRN IV PAIN 07/19/21 18:15 07/21/21 16:41 Ziprasidone (Geodon Im) 20 mg BID IM 07/19/21 19:00 07/22/21 20:09 Amino Acids/ Electrolytes/ Dextrose 1,000 ml @ 80 mls/hr [id number] IV 07/21/21 14:30 07/21/21 14:52 DC Amino Acids/ Electrolytes/ Dextrose 2,000 ml @ 80 mls/hr Q24H IV 07/21/21 15:00 07/22/21 16:00 I have reviewed the current psychotropics carefully including drug interactions. Risk benefit ratio favors no change other than as noted in my dictated progress note. 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
--- NOTE | 2021-07-23 06:53 | PDOC ---
Exam Note: Сергей Note: Late entry for 07/20/2021. Please also refer to the separate dictated note~for this date of service dictated separately.~Patient seen individually. Discussed the patient with Nursing staff reviewed the chart.~Reviewed interim history and current functioning. Reviewed vital signs,~Labs/ Radiology~and current medic ations noted below. Continue current treatment with the changes noted in the dictated addendum note Assessment: Vital Signs/I&O: Vital Signs Date Time Temp Pulse Resp B/P (MAP) Pulse Ox O2 Delivery O2 Flow Rate FiO2 07/22/21 23:00 97.7 73 18 135/76 (95) 100 Room Air 07/21/21 17:11 2.0 I & O 07/22/21 07/22/21 07/23/21 15:00 23:00 07:00 Intake Total 0 ml 0 ml 50 ml Output Total 1950 ml 400 ml 1150 ml Balance -1950 ml -400 ml -1100 ml Current Medications: Meds: Current Medications Medications (Trade) Dose Ordered Sig/Donte Route PRN Reason Start Time Stop Time Status Last Admin Dose Admin Dextrose/Sodium Chloride 1,000 ml @ 75 mls/hr [id number] IV 07/18/21 19:00 07/19/21 00:31 DC Piperacillin Sod/ Tazobactam Sod 3.375 gm/Sodium Chloride 50 ml @ 100 mls/hr Q6HRS IV 07/19/21 00:00 07/23/21 06:15 Dextrose/Sodium Chloride 1,000 ml @ 75 mls/hr [id number] IV 07/18/21 19:30 07/21/21 14:29 DC 07/21/21 14:10 Piperacillin Sod/ Tazobactam Sod 3.375 gm/Sodium Chloride 50 ml @ 100 mls/hr Q6HRS IV 07/19/21 00:00 UNV Olanzapine (ZyPREXA IM) 2.5 mg PRN Q4HRS PRN IM 1ST CHOICE AGITATION 07/18/21 19:30 07/22/21 11:11 Acetaminophen (Tylenol Supp) 650 mg PRN Q6HRS PRN [place] MILD PAIN / TEMP > 100.3'F 07/18/21 19:30 07/18/21 19:47 Haloperidol Lactate (Haldol) 5 mg PRN Q4HRS PRN IVP 2ND CHOICE AGITATION 07/18/21 21:00 07/19/21 11:58 DC 07/19/21 07:07 Influenza Virus Vaccine Quadrival (Flulaval Quad Syringe) 0.5 ml ONCE ONCE VAX IM 07/20/21 09:00 07/20/21 09:01 DC Lactobacillus Rhamnosus (Culturelle) 1 cap BID PO 07/19/21 09:00 07/20/21 20:01 Enoxaparin Sodium (Lovenox 40mg Syringe) 40 mg Q24H SQ 07/19/21 12:00 07/22/21 11:43 Haloperidol Lactate (Haldol) 5 mg PRN Q4HRS PRN IM 2ND CHOICE AGITATION 07/19/21 11:58 07/21/21 13:11 Morphine Sulfate (Morphine 4mg Syringe) 4 mg PRN Q4HRS PRN IV PAIN 07/19/21 18:15 07/21/21 16:41 Ziprasidone (Geodon Im) 20 mg BID IM 07/19/21 19:00 07/22/21 20:09 Amino Acids/ Electrolytes/ Dextrose 1,000 ml @ 80 mls/hr [id number] IV 07/21/21 14:30 07/21/21 14:52 DC Amino Acids/ Electrolytes/ Dextrose 2,000 ml @ 80 mls/hr Q24H IV 07/21/21 15:00 07/22/21 16:00 I have reviewed the current psychotropics carefully including drug interactions. Risk benefit ratio favors no change other than as noted in my dictated progress note. 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
--- NOTE | 2021-07-23 06:54 | PDOC ---
Exam Note: Сергей Note: Late entry for 07/22/2021. Please also refer to the separate dictated note~for this date of service dictated separately.~Patient seen individually. Discussed the patient with Nursing staff reviewed the chart.~Reviewed interim history and current functioning. Reviewed vital signs,~Labs/ Radiology~and current medic ations noted below. Continue current treatment with the changes noted in the dictated addendum note Assessment: Vital Signs/I&O: Vital Signs Date Time Temp Pulse Resp B/P (MAP) Pulse Ox O2 Delivery O2 Flow Rate FiO2 07/22/21 23:00 97.7 73 18 135/76 (95) 100 Room Air 07/21/21 17:11 2.0 I & O 07/22/21 07/22/21 07/23/21 15:00 23:00 07:00 Intake Total 0 ml 0 ml 50 ml Output Total 1950 ml 400 ml 1150 ml Balance -1950 ml -400 ml -1100 ml Current Medications: Meds: Current Medications Medications (Trade) Dose Ordered Sig/Donte Route PRN Reason Start Time Stop Time Status Last Admin Dose Admin Dextrose/Sodium Chloride 1,000 ml @ 75 mls/hr [id number] IV 07/18/21 19:00 07/19/21 00:31 DC Piperacillin Sod/ Tazobactam Sod 3.375 gm/Sodium Chloride 50 ml @ 100 mls/hr Q6HRS IV 07/19/21 00:00 07/23/21 06:15 Dextrose/Sodium Chloride 1,000 ml @ 75 mls/hr [id number] IV 07/18/21 19:30 07/21/21 14:29 DC 07/21/21 14:10 Piperacillin Sod/ Tazobactam Sod 3.375 gm/Sodium Chloride 50 ml @ 100 mls/hr Q6HRS IV 07/19/21 00:00 UNV Olanzapine (ZyPREXA IM) 2.5 mg PRN Q4HRS PRN IM 1ST CHOICE AGITATION 07/18/21 19:30 07/22/21 11:11 Acetaminophen (Tylenol Supp) 650 mg PRN Q6HRS PRN [place] MILD PAIN / TEMP > 100.3'F 07/18/21 19:30 07/18/21 19:47 Haloperidol Lactate (Haldol) 5 mg PRN Q4HRS PRN IVP 2ND CHOICE AGITATION 07/18/21 21:00 07/19/21 11:58 DC 07/19/21 07:07 Influenza Virus Vaccine Quadrival (Flulaval Quad Syringe) 0.5 ml ONCE ONCE VAX IM 07/20/21 09:00 07/20/21 09:01 DC Lactobacillus Rhamnosus (Culturelle) 1 cap BID PO 07/19/21 09:00 07/20/21 20:01 Enoxaparin Sodium (Lovenox 40mg Syringe) 40 mg Q24H SQ 07/19/21 12:00 07/22/21 11:43 Haloperidol Lactate (Haldol) 5 mg PRN Q4HRS PRN IM 2ND CHOICE AGITATION 07/19/21 11:58 07/21/21 13:11 Morphine Sulfate (Morphine 4mg Syringe) 4 mg PRN Q4HRS PRN IV PAIN 07/19/21 18:15 07/21/21 16:41 Ziprasidone (Geodon Im) 20 mg BID IM 07/19/21 19:00 07/22/21 20:09 Amino Acids/ Electrolytes/ Dextrose 1,000 ml @ 80 mls/hr [id number] IV 07/21/21 14:30 07/21/21 14:52 DC Amino Acids/ Electrolytes/ Dextrose 2,000 ml @ 80 mls/hr Q24H IV 07/21/21 15:00 07/22/21 16:00 I have reviewed the current psychotropics carefully including drug interactions. Risk benefit ratio favors no change other than as noted in my dictated progress note. 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
--- NOTE | 2021-07-23 06:55 | PDOC ---
Exam Note: Сергей Note: This note is a late entry for 07/20/2021 covers elements not covered in my initial note. Patient was seen individually on rounds evening of 07/20/2021. Discussed with nursing staff, reviewed the chart. Patient remains confused, somewhat restless, anxious, still has mitts in place, otherwise he is trying to pull on his lines. Review of Systems: No CV, , pulmonary, eye, ENT system symptoms on review. Reliability poor. Mental Status Exam: The patient is oriented to himself. Insight, judgment, recent and remote memory, attention and concentration, fund of knowledge is poor consistent with his diagnosis. Laboratory Data: Reviewed. Impression: Major neurocognitive disorder, Alzheimer, vascular with delusion, depression behavioral disturbance. Anxiety disorder unspecified. Impulse control disorder unspecified. Plan: Continue psychotropics from initial note. Adjust as clinically indicated. Assessment: Vital Signs/I&O: Vital Signs Date Time Temp Pulse Resp B/P (MAP) Pulse Ox O2 Delivery O2 Flow Rate FiO2 07/22/21 23:00 97.7 73 18 135/76 (95) 100 Room Air 07/21/21 17:11 2.0 I & O 07/22/21 07/22/21 07/23/21 15:00 23:00 07:00 Intake Total 0 ml 0 ml 50 ml Output Total 1950 ml 400 ml 1150 ml Balance -1950 ml -400 ml -1100 ml Current Medications: Meds: Current Medications Medications (Trade) Dose Ordered Sig/Donte Route PRN Reason Start Time Stop Time Status Last Admin Dose Admin Dextrose/Sodium Chloride 1,000 ml @ 75 mls/hr [id number] IV 07/18/21 19:00 07/19/21 00:31 DC Piperacillin Sod/ Tazobactam Sod 3.375 gm/Sodium Chloride 50 ml @ 100 mls/hr Q6HRS IV 07/19/21 00:00 07/23/21 06:15 Dextrose/Sodium Chloride 1,000 ml @ 75 mls/hr [id number] IV 07/18/21 19:30 07/21/21 14:29 DC 07/21/21 14:10 Piperacillin Sod/ Tazobactam Sod 3.375 gm/Sodium Chloride 50 ml @ 100 mls/hr Q6HRS IV 07/19/21 00:00 UNV Olanzapine (ZyPREXA IM) 2.5 mg PRN Q4HRS PRN IM 1ST CHOICE AGITATION 07/18/21 19:30 07/22/21 11:11 Acetaminophen (Tylenol Supp) 650 mg PRN Q6HRS PRN [place] MILD PAIN / TEMP > 100.3'F 07/18/21 19:30 07/18/21 19:47 Haloperidol Lactate (Haldol) 5 mg PRN Q4HRS PRN IVP 2ND CHOICE AGITATION 07/18/21 21:00 07/19/21 11:58 DC 07/19/21 07:07 Influenza Virus Vaccine Quadrival (Flulaval Quad [id number] Syringe) 0.5 ml ONCE ONCE VAX IM 07/20/21 09:00 07/20/21 09:01 DC Lactobacillus Rhamnosus (Culturelle) 1 cap BID PO 07/19/21 09:00 07/20/21 20:01 Enoxaparin Sodium (Lovenox 40mg Syringe) 40 mg Q24H SQ 07/19/21 12:00 07/22/21 11:43 Haloperidol Lactate (Haldol) 5 mg PRN Q4HRS PRN IM 2ND CHOICE AGITATION 07/19/21 11:58 07/21/21 13:11 Morphine Sulfate (Morphine 4mg Syringe) 4 mg PRN Q4HRS PRN IV PAIN 07/19/21 18:15 07/21/21 16:41 Ziprasidone (Geodon Im) 20 mg BID IM 07/19/21 19:00 07/22/21 20:09 Amino Acids/ Electrolytes/ Dextrose 1,000 ml @ 80 mls/hr [id number] IV 07/21/21 14:30 07/21/21 14:52 DC Amino Acids/ Electrolytes/ Dextrose 2,000 ml @ 80 mls/hr Q24H IV 07/21/21 15:00 07/22/21 16:00 I have reviewed the current psychotropics carefully including drug interactions. Risk benefit ratio favors no change other than as noted in my dictated progress note. Diagnosis: Problems: (1) Impulse control disorder, unspecified (2) Anxiety disorder, unspecified (3) Dementia, vascular, with depression (4) Dementia, vascular, with delusions (5) Dementia in Alzheimer's disease with depression (6) Dementia in Alzheimer's disease with delusions (7) Dementia of the Alzheimer's type with early onset with behavioral disturbance (8) Major neurocognitive disorder YEHUDA BLOOM MD Jul 23, 2021 06:55
--- NOTE | 2021-07-23 06:56 | PDOC ---
Exam Note: Сергей Note: This note is a late entry for 07/21/2021 covers elements not covered in my initial note. Patient was reviewed with nursing staff in the evening of 07/21/2021, reviewed his progress. He has been less agitated but very confused. He is more manageable. I have been asked to co-sign as a second physician for the patients Do Not Resuscitate Form that is completed by Dr. Scruggs as the primary physician. Given the patients status he seems very appropriate and I have completed the second physician part of this form. Review of Systems: No CV, , pulmonary, eye, ENT system symptoms on review per nursing staff. Mental Status Exam: The patient is oriented to himself. Insight, judgment, recent and remote memory, attention and concentration, fund of knowledge is poor consistent with his diagnosis. Laboratory Data: Reviewed. Impression: Major neurocognitive disorder, Alzheimer, vascular with delusion, depression behavioral disturbance. Anxiety disorder unspecified. Impulse control disorder unspecified. Plan: Continue psychotropics unchanged for now. We will continue to reassess and adjust psychotropics as clinically indicated. Assessment: Vital Signs/I&O: Vital Signs Date Time Temp Pulse Resp B/P (MAP) Pulse Ox O2 Delivery O2 Flow Rate FiO2 07/22/21 23:00 97.7 73 18 135/76 (95) 100 Room Air 07/21/21 17:11 2.0 I & O 07/22/21 07/22/21 07/23/21 15:00 23:00 07:00 Intake Total 0 ml 0 ml 50 ml Output Total 1950 ml 400 ml 1150 ml Balance -1950 ml -400 ml -1100 ml Current Medications: Meds: Current Medications Medications (Trade) Dose Ordered Sig/Donte Route PRN Reason Start Time Stop Time Status Last Admin Dose Admin Dextrose/Sodium Chloride 1,000 ml @ 75 mls/hr [id number] IV 07/18/21 19:00 07/19/21 00:31 DC Piperacillin Sod/ Tazobactam Sod 3.375 gm/Sodium Chloride 50 ml @ 100 mls/hr Q6HRS IV 07/19/21 00:00 07/23/21 06:15 Dextrose/Sodium Chloride 1,000 ml @ 75 mls/hr [id number] IV 07/18/21 19:30 07/21/21 14:29 DC 07/21/21 14:10 Piperacillin Sod/ Tazobactam Sod 3.375 gm/Sodium Chloride 50 ml @ 100 mls/hr Q6HRS IV 07/19/21 00:00 UNV Olanzapine (ZyPREXA IM) 2.5 mg PRN Q4HRS PRN IM 1ST CHOICE AGITATION 07/18/21 19:30 07/22/21 11:11 Acetaminophen (Tylenol Supp) 650 mg PRN Q6HRS PRN [place] MILD PAIN / TEMP > 100.3'F 07/18/21 19:30 07/18/21 19:47 Haloperidol Lactate (Haldol) 5 mg PRN Q4HRS PRN IVP 2ND CHOICE AGITATION 07/18/21 21:00 07/19/21 11:58 DC 07/19/21 07:07 Influenza Virus Vaccine Quadrival (Flulaval Quad [id number] Syringe) 0.5 ml ONCE ONCE VAX IM 07/20/21 09:00 07/20/21 09:01 DC Lactobacillus Rhamnosus (Culturelle) 1 cap BID PO 07/19/21 09:00 07/20/21 20:01 Enoxaparin Sodium (Lovenox 40mg Syringe) 40 mg Q24H SQ 07/19/21 12:00 07/22/21 11:43 Haloperidol Lactate (Haldol) 5 mg PRN Q4HRS PRN IM 2ND CHOICE AGITATION 07/19/21 11:58 07/21/21 13:11 Morphine Sulfate (Morphine 4mg Syringe) 4 mg PRN Q4HRS PRN IV PAIN 07/19/21 18:15 07/21/21 16:41 Ziprasidone (Geodon Im) 20 mg BID IM 07/19/21 19:00 07/22/21 20:09 Amino Acids/ Electrolytes/ Dextrose 1,000 ml @ 80 mls/hr [id number] IV 07/21/21 14:30 07/21/21 14:52 DC Amino Acids/ Electrolytes/ Dextrose 2,000 ml @ 80 mls/hr Q24H IV 07/21/21 15:00 07/22/21 16:00 I have reviewed the current psychotropics carefully including drug interactions. Risk benefit ratio favors no change other than as noted in my dictated progress note. Diagnosis: Problems: (1) Impulse control disorder, unspecified (2) Anxiety disorder, unspecified (3) Dementia, vascular, with depression (4) Dementia, vascular, with delusions (5) Dementia in Alzheimer's disease with depression (6) Dementia in Alzheimer's disease with delusions (7) Dementia of the Alzheimer's type with early onset with behavioral disturbance (8) Major neurocognitive disorder YEHUDA BLOOM MD Jul 23, 2021 06:56
--- NOTE | 2021-07-23 06:59 | PDOC ---
Exam Note: Сергей Note: This note is a late entry for 07/22/2021 covers elements not covered in my initial note. Patient was seen individually in the evening of 07/22/2021. Discussed with nursing staff, reviewed the chart. Overall he is doing much better today. He still has his mitts in place but he was pleasant, smiling as I met with him in his room. He did pull out his IV line earlier today. Review of Systems: Impaired ambulation. No CV, , pulmonary, eye, ENT system symptoms on review per nursing staff. Mental Status Exam: The patient is oriented to himself. Insight, judgment, recent and remote memory, attention and concentration, fund of knowledge is poor consistent with his diagnosis. He was quite pleasant, smiling again which is quite a change for him. Laboratory Data: Reviewed. Impression: Major neurocognitive disorder, Alzheimer, vascular with delusion, depression behavioral disturbance. Anxiety disorder unspecified. Impulse control disorder unspecified. Plan: Continue psychotropics from initial note. Use Zyprexa p.r.n. Assessment: Vital Signs/I&O: Vital Signs Date Time Temp Pulse Resp B/P (MAP) Pulse Ox O2 Delivery O2 Flow Rate FiO2 07/22/21 23:00 97.7 73 18 135/76 (95) 100 Room Air 07/21/21 17:11 2.0 I & O 07/22/21 07/22/21 07/23/21 15:00 23:00 07:00 Intake Total 0 ml 0 ml 50 ml Output Total 1950 ml 400 ml 1150 ml Balance -1950 ml -400 ml -1100 ml Current Medications: Meds: Current Medications Medications (Trade) Dose Ordered Sig/Donte Route PRN Reason Start Time Stop Time Status Last Admin Dose Admin Dextrose/Sodium Chloride 1,000 ml @ 75 mls/hr [id number] IV 07/18/21 19:00 07/19/21 00:31 DC Piperacillin Sod/ Tazobactam Sod 3.375 gm/Sodium Chloride 50 ml @ 100 mls/hr Q6HRS IV 07/19/21 00:00 07/23/21 06:15 Dextrose/Sodium Chloride 1,000 ml @ 75 mls/hr [id number] IV 07/18/21 19:30 07/21/21 14:29 DC 07/21/21 14:10 Piperacillin Sod/ Tazobactam Sod 3.375 gm/Sodium Chloride 50 ml @ 100 mls/hr Q6HRS IV 07/19/21 00:00 UNV Olanzapine (ZyPREXA IM) 2.5 mg PRN Q4HRS PRN IM 1ST CHOICE AGITATION 07/18/21 19:30 07/22/21 11:11 Acetaminophen (Tylenol Supp) 650 mg PRN Q6HRS PRN [place] MILD PAIN / TEMP > 100.3'F 07/18/21 19:30 07/18/21 19:47 Haloperidol Lactate (Haldol) 5 mg PRN Q4HRS PRN IVP 2ND CHOICE AGITATION 07/18/21 21:00 07/19/21 11:58 DC 07/19/21 07:07 Influenza Virus Vaccine Quadrival (Flulaval Quad [id number] Syringe) 0.5 ml ONCE ONCE VAX IM 07/20/21 09:00 07/20/21 09:01 DC Lactobacillus Rhamnosus (Culturelle) 1 cap BID PO 07/19/21 09:00 07/20/21 20:01 Enoxaparin Sodium (Lovenox 40mg Syringe) 40 mg Q24H SQ 07/19/21 12:00 07/22/21 11:43 Haloperidol Lactate (Haldol) 5 mg PRN Q4HRS PRN IM 2ND CHOICE AGITATION 07/19/21 11:58 07/21/21 13:11 Morphine Sulfate (Morphine 4mg Syringe) 4 mg PRN Q4HRS PRN IV PAIN 07/19/21 18:15 07/21/21 16:41 Ziprasidone (Geodon Im) 20 mg BID IM 07/19/21 19:00 07/22/21 20:09 Amino Acids/ Electrolytes/ Dextrose 1,000 ml @ 80 mls/hr [id number] IV 07/21/21 14:30 07/21/21 14:52 DC Amino Acids/ Electrolytes/ Dextrose 2,000 ml @ 80 mls/hr Q24H IV 07/21/21 15:00 07/22/21 16:00 I have reviewed the current psychotropics carefully including drug interactions. Risk benefit ratio favors no change other than as noted in my dictated progress note. Diagnosis: Problems: (1) Impulse control disorder, unspecified (2) Anxiety disorder, unspecified (3) Dementia, vascular, with depression (4) Dementia, vascular, with delusions (5) Dementia in Alzheimer's disease with depression (6) Dementia in Alzheimer's disease with delusions (7) Dementia of the Alzheimer's type with early onset with behavioral disturbance (8) Major neurocognitive disorder YEHUDA BLOOM MD Jul 23, 2021 06:59
[2021-07-23] MEDS: LACTOBACILLUS RHAMNOSUS GG 1 CAPSULE. PO SCH ×2 (08:23→19:27)
[2021-07-23 08:24] VITALS: BP 130/85
[2021-07-23] MEDS: ZIPRASIDONE IM 20 MG VIAL. IM SCH ×2 (08:34→19:27)
[2021-07-23 10:46] VITALS: BP 132/62
[2021-07-23] MEDS: ENOXAPARIN 40 MG/0.4 ML SYRINGE. SQ SCH (11:59)
--- NOTE | 2021-07-23 13:56 | PN ---
DATE: 07/23/2021 ATTENDING PHYSICIANS: Dr. Scruggs/Dr. Ramirez. SUBJECTIVE: He is alert. He is pleasantly confused. He is less agitated. OBJECTIVE FINDINGS: VITAL SIGNS: Blood pressure this morning is 135/76, pulse is 75 and regular. He is afebrile. Oxygen saturation 99% on room air. HEENT: Head is without trauma. Pupils are reactive. Sclerae nonicteric. Oropharynx clear. NECK: Supple. No stridor. LUNGS: Good breath sounds. CARDIOVASCULAR: Regular heart tones. ABDOMEN: Soft. EXTREMITIES: Without edema. NEUROLOGIC: Profound confusion with agitation. We are still requiring placement of mitts, so he does not pull out his IV. ASSESSMENT: 1. An 81-year-old gentleman with aspiration pneumonia. 2. Acute hypoxemic respiratory failure, improved. He is now having adequate saturations on room air. 3. Interstitial lung disease. 4. Chronic obstructive pulmonary disease by history. 5. Chronic anemia. 6. Profound dementia with behavioral issues. 7. Severe protein calorie malnutrition. PLAN: 1. Continue antibiotics as ordered. 2. We are awaiting placement. They are working on [facility] at his facility in [place], [place]. LENA/ALEXANDRA/LOUIE DR: LENA/ross TID: [id number]
[2021-07-23] MEDS: OLANZapine IM 10 MG VIAL. IM PRN (14:51)
[2021-07-23] MEDS: AA 4.25 %/CALCIUM/LYTES/D5W 2,000 ML IV SCH (15:04)
[2021-07-23 15:09] VITALS: BP 120/81
--- NOTE | 2021-07-23 17:53 | NUR ---
PT IS ALERT AND ORIENTED X1 AND TALKING. ELECTROLYTES AND ANTIBIOTICS ARE INFUSING. PT IN BED WITH CALL LIGHT IN REACH. WILL CONTINUE TO MONITOR.
[2021-07-23 18:47] VITALS: BP 130/65
--- NOTE | 2021-07-23 21:27 | PDOC ---
Exam Note: Сергей Note: Please also refer to the separate dictated note~for this date of service dictated separately.~Patient seen individually. Discussed the patient with Nursing staff reviewed the chart.~Reviewed interim history and current functioning. Reviewed vital signs,~Labs/ Radiology~and current medications noted below. Continue current treatment with the changes noted in the dictated addendum note Assessment: Vital Signs/I&O: Vital Signs Date Time Temp Pulse Resp B/P (MAP) Pulse Ox O2 Delivery O2 Flow Rate FiO2 07/23/21 18:47 97.9 77 20 130/65 (86) 100 Room Air 07/21/21 17:11 2.0 I & O 07/22/21 07/22/21 07/23/21 15:00 23:00 07:00 Intake Total 0 ml 0 ml 50 ml Output Total 1950 ml 400 ml 1150 ml Balance -1950 ml -400 ml -1100 ml Current Medications: Meds: Current Medications Medications (Trade) Dose Ordered Sig/Donte Route PRN Reason Start Time Stop Time Status Last Admin Dose Admin Dextrose/Sodium Chloride 1,000 ml @ 75 mls/hr [id number] IV 07/18/21 19:00 07/19/21 00:31 DC Piperacillin Sod/ Tazobactam Sod 3.375 gm/Sodium Chloride 50 ml @ 100 mls/hr Q6HRS IV 07/19/21 00:00 07/23/21 17:39 Dextrose/Sodium Chloride 1,000 ml @ 75 mls/hr [id number] IV 07/18/21 19:30 07/21/21 14:29 DC 07/21/21 14:10 Piperacillin Sod/ Tazobactam Sod 3.375 gm/Sodium Chloride 50 ml @ 100 mls/hr Q6HRS IV 07/19/21 00:00 UNV Olanzapine (ZyPREXA IM) 2.5 mg PRN Q4HRS PRN IM 1ST CHOICE AGITATION 07/18/21 19:30 07/23/21 14:51 Acetaminophen (Tylenol Supp) 650 mg PRN Q6HRS PRN [place] MILD PAIN / TEMP > 100.3'F 07/18/21 19:30 07/18/21 19:47 Haloperidol Lactate (Haldol) 5 mg PRN Q4HRS PRN IVP 2ND CHOICE AGITATION 07/18/21 21:00 07/19/21 11:58 DC 07/19/21 07:07 Influenza Virus Vaccine Quadrival (Flulaval Quad Syringe) 0.5 ml ONCE ONCE VAX IM 07/20/21 09:00 07/20/21 09:01 DC Lactobacillus Rhamnosus (Culturelle) 1 cap BID PO 07/19/21 09:00 07/20/21 20:01 Enoxaparin Sodium (Lovenox 40mg Syringe) 40 mg Q24H SQ 07/19/21 12:00 07/23/21 11:59 Haloperidol Lactate (Haldol) 5 mg PRN Q4HRS PRN IM 2ND CHOICE AGITATION 07/19/21 11:58 07/21/21 13:11 Morphine Sulfate (Morphine 4mg Syringe) 4 mg PRN Q4HRS PRN IV PAIN 07/19/21 18:15 07/21/21 16:41 Ziprasidone (Geodon Im) 20 mg BID IM 07/19/21 19:00 07/23/21 19:27 Amino Acids/ Electrolytes/ Dextrose 1,000 ml @ 80 mls/hr [id number] IV 07/21/21 14:30 07/21/21 14:52 DC Amino Acids/ Electrolytes/ Dextrose 2,000 ml @ 80 mls/hr Q24H IV 07/21/21 15:00 07/23/21 15:04 I have reviewed the current psychotropics carefully including drug interactions. Risk benefit ratio favors no change other than as noted in my dictated progress note. Diagnosis: Problems: (1) Impulse control disorder, unspecified (2) Anxiety disorder, unspecified (3) Dementia, vascular, with depression (4) Dementia, vascular, with delusions (5) Dementia in Alzheimer's disease with depression (6) Dementia in Alzheimer's disease with delusions (7) Dementia of the Alzheimer's type with early onset with behavioral disturbance (8) Major neurocognitive disorder YEHUDA BLOOM MD Jul 23, 2021 21:27
[2021-07-24] MEDS: PIPERACILLIN/TAZOBACTAM 3.375 GM in IV NORMAL SALINE 50ML 50 ML IV SCH ×4 (02:22→17:48)
--- NOTE | 2021-07-24 03:24 | NUR ---
Pt has been more cooperative, does occasionally try to get up unassisted but easily redirects. Pleasantly confused. 1:1 observation DC'd. Mits remain in place to protect lines. Bed alarmed for safety.
[2021-07-24] MEDS: HALOPERIDOL LACT 5 MG/ML VIAL. IM PRN ×2 (04:35→15:28)
[2021-07-24 06:10] VITALS: BP 105/66
[2021-07-24] MEDS: LACTOBACILLUS RHAMNOSUS GG 1 CAPSULE. PO SCH ×3 (08:49→22:37)
[2021-07-24] MEDS: ZIPRASIDONE IM 20 MG VIAL. IM SCH ×2 (08:49→22:36)
[2021-07-24 11:02] VITALS: BP 123/77
[2021-07-24] MEDS: ENOXAPARIN 40 MG/0.4 ML SYRINGE. SQ SCH (11:30)
--- NOTE | 2021-07-24 13:47 | PN ---
DATE: 07/24/2021 ATTENDING PHYSICIAN: Dr. Ramirez. SUBJECTIVE: Calm, resting quietly. He is not agitated this morning. OBJECTIVE FINDINGS: VITAL SIGNS: Blood pressure this morning is 130/66. He is afebrile, pulse 77 and regular, oxygen saturation is 92% on room air. HEENT: Head is without trauma. Pupils are reactive. Sclerae nonicteric. Oropharynx is clear. NECK: Supple, no bruits identified. LUNGS: Shallow respirations, but clear. CARDIOVASCULAR: Showed regular heart tones. No gallops. ABDOMEN: Soft. No guarding. EXTREMITIES: Without edema. NEUROLOGIC: Profoundly confused and with intermittent agitation. He is still requiring mitts to prevent pulling out IVs. ASSESSMENT: 1. An 81-year-old gentleman with aspiration pneumonia. 2. Acute hypoxemic respiratory failure, improved, now with adequate saturations on room air. 3. Interstitial lung disease. 4. Chronic obstructive pulmonary disease by history. 5. Chronic anemia. 6. Profound dementia with behavioral issues. 7. Protein-calorie malnutrition. PLAN: 1. We are still working on appeal for code status. 2. Continue antibiotics. 3. Awaiting placement. LENA/MAGNOLIA DR: LENA/ross TID: [id number]
--- NOTE | 2021-07-24 13:49 | NUR ---
Nursing note PT in bed able to respond to some questions and tell the nurse if he is pain and need help with anything. Medications administered per doctors orders. Waiting on physical therapy to take PT out of bed for a walk, since PT has been asking to get out of bed since morning. Bed low, call light within reach, PT reports no order needs, will continue to evaluate.
[2021-07-24 14:25] VITALS: BP 70/58
[2021-07-24] MEDS: AA 4.25 %/CALCIUM/LYTES/D5W 2,000 ML IV SCH (17:48)
[2021-07-24 18:50] VITALS: BP 114/70
--- NOTE | 2021-07-24 20:21 | PDOC ---
Exam Note: Сергей Note: Please also refer to the separate dictated note~for this date of service dictated separately.~Patient seen individually. Discussed the patient with Nursing staff reviewed the chart.~Reviewed interim history and current functioning. Reviewed vital signs,~Labs/ Radiology~and current medications noted below. Continue current treatment with the changes noted in the dictated addendum note Assessment: Vital Signs/I&O: Vital Signs Date Time Temp Pulse Resp B/P (MAP) Pulse Ox O2 Delivery O2 Flow Rate FiO2 07/24/21 18:50 97.4 68 18 114/70 (85) 98 Room Air 07/21/21 17:11 2.0 I & O 07/23/21 07/23/21 07/24/21 15:00 23:00 07:00 Intake Total 0 ml 0 ml 100 ml Output Total 600 ml 625 ml 1000 ml Balance -600 ml -625 ml -900 ml Current Medications: Meds: Current Medications Medications (Trade) Dose Ordered Sig/Donte Route PRN Reason Start Time Stop Time Status Last Admin Dose Admin Dextrose/Sodium Chloride 1,000 ml @ 75 mls/hr [id number] IV 07/18/21 19:00 07/19/21 00:31 DC Piperacillin Sod/ Tazobactam Sod 3.375 gm/Sodium Chloride 50 ml @ 100 mls/hr Q6HRS IV 07/19/21 00:00 07/24/21 17:48 Dextrose/Sodium Chloride 1,000 ml @ 75 mls/hr [id number] IV 07/18/21 19:30 07/21/21 14:29 DC 07/21/21 14:10 Piperacillin Sod/ Tazobactam Sod 3.375 gm/Sodium Chloride 50 ml @ 100 mls/hr Q6HRS IV 07/19/21 00:00 UNV Olanzapine (ZyPREXA IM) 2.5 mg PRN Q4HRS PRN IM 1ST CHOICE AGITATION 07/18/21 19:30 07/23/21 14:51 Acetaminophen (Tylenol Supp) 650 mg PRN Q6HRS PRN [place] MILD PAIN / TEMP > 100.3'F 07/18/21 19:30 07/18/21 19:47 Haloperidol Lactate (Haldol) 5 mg PRN Q4HRS PRN IVP 2ND CHOICE AGITATION 07/18/21 21:00 07/19/21 11:58 DC 07/19/21 07:07 Influenza Virus Vaccine Quadrival (Flulaval Quad Syringe) 0.5 ml ONCE ONCE VAX IM 07/20/21 09:00 07/20/21 09:01 DC Lactobacillus Rhamnosus (Culturelle) 1 cap BID PO 07/19/21 09:00 07/20/21 20:01 Enoxaparin Sodium (Lovenox 40mg Syringe) 40 mg Q24H SQ 07/19/21 12:00 07/24/21 11:30 Haloperidol Lactate (Haldol) 5 mg PRN Q4HRS PRN IM 2ND CHOICE AGITATION 07/19/21 11:58 07/24/21 15:28 Morphine Sulfate (Morphine 4mg Syringe) 4 mg PRN Q4HRS PRN IV PAIN 07/19/21 18:15 07/21/21 16:41 Ziprasidone (Geodon Im) 20 mg BID IM 07/19/21 19:00 07/24/21 08:49 Amino Acids/ Electrolytes/ Dextrose 1,000 ml @ 80 mls/hr [id number] IV 07/21/21 14:30 07/21/21 14:52 DC Amino Acids/ Electrolytes/ Dextrose 2,000 ml @ 80 mls/hr Q24H IV 07/21/21 15:00 07/24/21 17:48 I have reviewed the current psychotropics carefully including drug interactions. Risk benefit ratio favors no change other than as noted in my dictated progress note. Diagnosis: Problems: (1) Impulse control disorder, unspecified (2) Anxiety disorder, unspecified (3) Dementia, vascular, with depression (4) Dementia, vascular, with delusions (5) Dementia in Alzheimer's disease with depression (6) Dementia in Alzheimer's disease with delusions (7) Dementia of the Alzheimer's type with early onset with behavioral disturbance (8) Major neurocognitive disorder YEHUDA BLOOM MD Jul 24, 2021 20:21
[2021-07-24 22:45] VITALS: BP 112/73
[2021-07-25] MEDS: OLANZapine IM 10 MG VIAL. IM PRN (02:39)
[2021-07-25 05:31] VITALS: BP 129/74
[2021-07-25] MEDS: PIPERACILLIN/TAZOBACTAM 3.375 GM in IV NORMAL SALINE 50ML 50 ML IV SCH ×4 (06:16→17:33)
--- NOTE | 2021-07-25 06:29 | NUR ---
Pt slept soundly most of the night. He woke up confused and agitated at one point and pulled out the IV in his right arm. Zyprexa given and IV site checked and tape removed. Warm blanket given; pt went back to sleep. Denies pain. Will continue to monitor.
--- NOTE | 2021-07-25 07:12 | PDOC ---
Exam Note: Сергей Note: This note is a late entry for 07/23/2021 covers elements not covered in my initial note. Subjective: Patient was seen individually in the evening of 07/23/2021. Discussed with nursing staff, reviewed the chart. Overall he has been ambulating a little better, little more animated, slightly less confused and mu ch less aggressive and disruptive. He is ambulating somewhat with physical therapy staff as well. Review of Systems: Ambulation impaired. No CV, , pulmonary, eye, ENT system symptoms on review. Reliability poor. Mental Status Exam: The patient is oriented to himself. Insight, judgment, recent and remote memory, attention and concentration, fund of knowledge is poor consistent with his diagnosis. Laboratory Data: Reviewed. Impression: Major neurocognitive disorder, Alzheimer, vascular with delusion, depression behavioral disturbance. Anxiety disorder unspecified. Impulse control disorder unspecified. Plan: Continue psychotropics from initial note. Assessment: Vital Signs/I&O: Vital Signs Date Time Temp Pulse Resp B/P (MAP) Pulse Ox O2 Delivery O2 Flow Rate FiO2 07/25/21 05:31 97.4 90 16 129/74 (92) 96 Room Air 07/21/21 17:11 2.0 I & O 07/24/21 07/24/21 07/25/21 15:00 23:00 07:00 Intake Total 0 ml 0 ml 50 ml Output Total 900 ml 1400 ml Balance 0 ml -900 ml -1350 ml Current Medications: Meds: Current Medications Medications (Trade) Dose Ordered Sig/Donte Route PRN Reason Start Time Stop Time Status Last Admin Dose Admin Dextrose/Sodium Chloride 1,000 ml @ 75 mls/hr [id number] IV 07/18/21 19:00 07/19/21 00:31 DC Piperacillin Sod/ Tazobactam Sod 3.375 gm/Sodium Chloride 50 ml @ 100 mls/hr Q6HRS IV 07/19/21 00:00 07/25/21 06:16 Dextrose/Sodium Chloride 1,000 ml @ 75 mls/hr [id number] IV 07/18/21 19:30 07/21/21 14:29 DC 07/21/21 14:10 Piperacillin Sod/ Tazobactam Sod 3.375 gm/Sodium Chloride 50 ml @ 100 mls/hr Q6HRS IV 07/19/21 00:00 UNV Olanzapine (ZyPREXA IM) 2.5 mg PRN Q4HRS PRN IM 1ST CHOICE AGITATION 07/18/21 19:30 07/25/21 02:39 Acetaminophen (Tylenol Supp) 650 mg PRN Q6HRS PRN [place] MILD PAIN / TEMP > 100.3'F 07/18/21 19:30 07/18/21 19:47 Haloperidol Lactate (Haldol) 5 mg PRN Q4HRS PRN IVP 2ND CHOICE AGITATION 07/18/21 21:00 07/19/21 11:58 DC 07/19/21 07:07 Influenza Virus Vaccine Quadrival (Flulaval Quad [id number] Syringe) 0.5 ml ONCE ONCE VAX IM 07/20/21 09:00 07/20/21 09:01 DC Lactobacillus Rhamnosus (Culturelle) 1 cap BID PO 07/19/21 09:00 07/20/21 20:01 Enoxaparin Sodium (Lovenox 40mg Syringe) 40 mg Q24H SQ 07/19/21 12:00 07/24/21 11:30 Haloperidol Lactate (Haldol) 5 mg PRN Q4HRS PRN IM 2ND CHOICE AGITATION 07/19/21 11:58 07/24/21 15:28 Morphine Sulfate (Morphine 4mg Syringe) 4 mg PRN Q4HRS PRN IV PAIN 07/19/21 18:15 07/21/21 16:41 Ziprasidone (Geodon Im) 20 mg BID IM 07/19/21 19:00 07/24/21 22:36 Amino Acids/ Electrolytes/ Dextrose 1,000 ml @ 80 mls/hr [id number] IV 07/21/21 14:30 07/21/21 14:52 DC Amino Acids/ Electrolytes/ Dextrose 2,000 ml @ 80 mls/hr Q24H IV 07/21/21 15:00 07/24/21 17:48 I have reviewed the current psychotropics carefully including drug interactions. Risk benefit ratio favors no change other than as noted in my dictated progress note. Diagnosis: Problems: (1) Impulse control disorder, unspecified (2) Anxiety disorder, unspecified (3) Dementia, vascular, with depression (4) Dementia, vascular, with delusions (5) Dementia in Alzheimer's disease with depression (6) Dementia in Alzheimer's disease with delusions (7) Dementia of the Alzheimer's type with early onset with behavioral disturbance (8) Major neurocognitive disorder YEHUDA BLOOM MD Jul 25, 2021 07:12
--- NOTE | 2021-07-25 07:22 | PDOC ---
Exam Note: Сергей Note: This note is a late entry for 07/24/2021 covers elements not covered in my initial note. Subjective: Patient was seen individually in the evening of 07/24/2021. Discussed with nursing staff, reviewed the chart. The patients mitts have been removed since the afternoon and he has done quite well, not pulling on any lines or otherwise disruptive. He remains confused but little more animated and ambulating better. He is quite sleepy this evening. Review of Systems: Ambulation remains impaired but per nursing report no CV, , pulmonary, eye, ENT system symptoms on review. Mental Status Exam: The patient is oriented to himself. Insight, judgment, recent and remote memory, attention and concentration, fund of knowledge is poor consistent with his diagnosis. Laboratory Data: Reviewed. Impression: Major neurocognitive disorder, Alzheimer, vascular with delusion, depression behavioral disturbance. Anxiety disorder unspecified. Impulse control disorder unspecified. Plan: Continue current psychotropics including the IM Geodon b.i.d. which seems to be helping. Assessment: Vital Signs/I&O: Vital Signs Date Time Temp Pulse Resp B/P (MAP) Pulse Ox O2 Delivery O2 Flow Rate FiO2 07/25/21 05:31 97.4 90 16 129/74 (92) 96 Room Air 07/21/21 17:11 2.0 I & O 07/24/21 07/24/21 07/25/21 15:00 23:00 07:00 Intake Total 0 ml 0 ml 50 ml Output Total 900 ml 1400 ml Balance 0 ml -900 ml -1350 ml Current Medications: Meds: Current Medications Medications (Trade) Dose Ordered Sig/Odnte Route PRN Reason Start Time Stop Time Status Last Admin Dose Admin Dextrose/Sodium Chloride 1,000 ml @ 75 mls/hr [id number] IV 07/18/21 19:00 07/19/21 00:31 DC Piperacillin Sod/ Tazobactam Sod 3.375 gm/Sodium Chloride 50 ml @ 100 mls/hr Q6HRS IV 07/19/21 00:00 07/25/21 06:16 Dextrose/Sodium Chloride 1,000 ml @ 75 mls/hr [id number] IV 07/18/21 19:30 07/21/21 14:29 DC 07/21/21 14:10 Piperacillin Sod/ Tazobactam Sod 3.375 gm/Sodium Chloride 50 ml @ 100 mls/hr Q6HRS IV 07/19/21 00:00 UNV Olanzapine (ZyPREXA IM) 2.5 mg PRN Q4HRS PRN IM 1ST CHOICE AGITATION 07/18/21 19:30 07/25/21 02:39 Acetaminophen (Tylenol Supp) 650 mg PRN Q6HRS PRN [place] MILD PAIN / TEMP > 100.3'F 07/18/21 19:30 07/18/21 19:47 Haloperidol Lactate (Haldol) 5 mg PRN Q4HRS PRN IVP 2ND CHOICE AGITATION 07/18/21 21:00 07/19/21 11:58 DC 07/19/21 07:07 Influenza Virus Vaccine Quadrival (Flulaval Quad [id number] Syringe) 0.5 ml ONCE ONCE VAX IM 07/20/21 09:00 07/20/21 09:01 DC Lactobacillus Rhamnosus (Culturelle) 1 cap BID PO 07/19/21 09:00 07/20/21 20:01 Enoxaparin Sodium (Lovenox 40mg Syringe) 40 mg Q24H SQ 07/19/21 12:00 07/24/21 11:30 Haloperidol Lactate (Haldol) 5 mg PRN Q4HRS PRN IM 2ND CHOICE AGITATION 07/19/21 11:58 07/24/21 15:28 Morphine Sulfate (Morphine 4mg Syringe) 4 mg PRN Q4HRS PRN IV PAIN 07/19/21 18:15 07/21/21 16:41 Ziprasidone (Geodon Im) 20 mg BID IM 07/19/21 19:00 07/24/21 22:36 Amino Acids/ Electrolytes/ Dextrose 1,000 ml @ 80 mls/hr [id number] IV 07/21/21 14:30 07/21/21 14:52 DC Amino Acids/ Electrolytes/ Dextrose 2,000 ml @ 80 mls/hr Q24H IV 07/21/21 15:00 07/24/21 17:48 I have reviewed the current psychotropics carefully including drug interactions. Risk benefit ratio favors no change other than as noted in my dictated progress note. Diagnosis: Problems: (1) Impulse control disorder, unspecified (2) Anxiety disorder, unspecified (3) Dementia, vascular, with depression (4) Dementia, vascular, with delusions (5) Dementia in Alzheimer's disease with depression (6) Dementia in Alzheimer's disease with delusions (7) Dementia of the Alzheimer's type with early onset with behavioral disturbance (8) Major neurocognitive disorder YEHUDA BLOOM MD Jul 25, 2021 07:22
[2021-07-25] MEDS: LACTOBACILLUS RHAMNOSUS GG 1 CAPSULE. PO SCH ×2 (08:15→21:00)
[2021-07-25] MEDS: ZIPRASIDONE IM 20 MG VIAL. IM SCH ×2 (09:48→22:26)
--- NOTE | 2021-07-25 10:34 | PN ---
DATE: 07/25/2021 ATTENDING PHYSICIANS: Dr. Scruggs/Dr. Ramirez. SUBJECTIVE: The patient is pleasantly confused, but resting comfortably. OBJECTIVE FINDINGS: VITAL SIGNS: Blood pressure is 129/74. He is afebrile. Oxygen saturations are 96% on room air. HEENT: Head is without trauma. Pupils are reactive. Sclerae nonicteric. Oropharynx clear. NECK: Supple. No stridor. LUNGS: Clear with good breath sounds. CARDIOVASCULAR: Regular heart tones. ABDOMEN: Soft. EXTREMITIES: Without edema. NEUROLOGIC: Profoundly confused with agitation. ASSESSMENT: 1. An 81-year-old gentleman with aspiration pneumonia. 2. Acute hypoxemic respiratory failure, now improved with adequate oxygen saturations on room air. 3. Interstitial lung disease. 4. Chronic obstructive pulmonary disease by history. 5. Chronic anemia. 6. Profound dementia with behavioral issues. PLAN: 1. Continue Clinimix as ordered. 2. Await placement. 3. Continue antibiotics. MEL DR: Ovidio TID: [id number]
[2021-07-25 11:40] VITALS: BP 99/66
[2021-07-25] MEDS: ENOXAPARIN 40 MG/0.4 ML SYRINGE. SQ SCH (12:38)
[2021-07-25 16:05] VITALS: BP 110/68
--- NOTE | 2021-07-25 18:04 | NUR ---
PT PULLED OUT IV, PULLED OF CATHETER STAT LOCK X2. PT TRIED TO CLIMB OUT OF BED A FEW TIMES TODAY. PT VERY PLEASANT AND VERY EASILY REDIRECTED.
[2021-07-25 19:00] VITALS: BP 97/61
--- NOTE | 2021-07-25 20:59 | PDOC ---
Exam Note: Сергей Note: Please also refer to the separate dictated note~for this date of service dictated separately.~Patient seen individually. Discussed the patient with Nursing staff reviewed the chart.~Reviewed interim history and current functioning. Reviewed vital signs,~Labs/ Radiology~and current medications noted below. Continue current treatment with the changes noted in the dictated addendum note Assessment: Vital Signs/I&O: Vital Signs Date Time Temp Pulse Resp B/P (MAP) Pulse Ox O2 Delivery O2 Flow Rate FiO2 07/25/21 20:00 Room Air 07/25/21 19:00 97.6 96 20 97/61 (73) 93 07/21/21 17:11 2.0 I & O 07/24/21 07/24/21 07/25/21 15:00 23:00 07:00 Intake Total 0 ml 0 ml 50 ml Output Total 900 ml 1400 ml Balance 0 ml -900 ml -1350 ml Current Medications: Meds: Current Medications Medications (Trade) Dose Ordered Sig/Donte Route PRN Reason Start Time Stop Time Status Last Admin Dose Admin Dextrose/Sodium Chloride 1,000 ml @ 75 mls/hr [id number] IV 07/18/21 19:00 07/19/21 00:31 DC Piperacillin Sod/ Tazobactam Sod 3.375 gm/Sodium Chloride 50 ml @ 100 mls/hr Q6HRS IV 07/19/21 00:00 07/25/21 17:33 Dextrose/Sodium Chloride 1,000 ml @ 75 mls/hr [id number] IV 07/18/21 19:30 07/21/21 14:29 DC 07/21/21 14:10 Piperacillin Sod/ Tazobactam Sod 3.375 gm/Sodium Chloride 50 ml @ 100 mls/hr Q6HRS IV 07/19/21 00:00 UNV Olanzapine (ZyPREXA IM) 2.5 mg PRN Q4HRS PRN IM 1ST CHOICE AGITATION 07/18/21 19:30 07/25/21 02:39 Acetaminophen (Tylenol Supp) 650 mg PRN Q6HRS PRN [place] MILD PAIN / TEMP > 100.3'F 07/18/21 19:30 07/18/21 19:47 Haloperidol Lactate (Haldol) 5 mg PRN Q4HRS PRN IVP 2ND CHOICE AGITATION 07/18/21 21:00 12/5/21 11:58 DC 07/19/21 07:07 Influenza Virus Vaccine Quadrival (Flulaval Quad Syringe) 0.5 ml ONCE ONCE VAX IM 07/20/21 09:00 07/20/21 09:01 DC Lactobacillus Rhamnosus (Culturelle) 1 cap BID PO 07/19/21 09:00 07/20/21 20:01 Enoxaparin Sodium (Lovenox 40mg Syringe) 40 mg Q24H SQ 07/19/21 12:00 07/25/21 12:38 Haloperidol Lactate (Haldol) 5 mg PRN Q4HRS PRN IM 2ND CHOICE AGITATION 07/19/21 11:58 07/24/21 15:28 Morphine Sulfate (Morphine 4mg Syringe) 4 mg PRN Q4HRS PRN IV PAIN 07/19/21 18:15 07/21/21 16:41 Ziprasidone (Geodon Im) 20 mg BID IM 07/19/21 19:00 07/25/21 09:48 Amino Acids/ Electrolytes/ Dextrose 1,000 ml @ 80 mls/hr [id number] IV 07/21/21 14:30 07/21/21 14:52 DC Amino Acids/ Electrolytes/ Dextrose 2,000 ml @ 80 mls/hr Q24H IV 07/21/21 15:00 07/24/21 17:48 I have reviewed the current psychotropics carefully including drug interactions. Risk benefit ratio favors no change other than as noted in my dictated progress note. Diagnosis: Problems: (1) Impulse control disorder, unspecified (2) Anxiety disorder, unspecified (3) Dementia, vascular, with depression (4) Dementia, vascular, with delusions (5) Dementia in Alzheimer's disease with depression (6) Dementia in Alzheimer's disease with delusions (7) Dementia of the Alzheimer's type with early onset with behavioral disturbance (8) Major neurocognitive disorder YEHUDA BLOOM MD Jul 25, 2021 20:59
[2021-07-25] MEDS: MORPHINE SULFATE 4 MG/ML DISP.SYRIN. IV PRN (22:27)
[2021-07-25] MEDS: AA 4.25 %/CALCIUM/LYTES/D5W 2,000 ML IV SCH (22:27)
--- NOTE | 2021-07-25 23:20 | NUR ---
Pt has gotten out of bed three times. He has pulled off his statlock. He asks,"Do you guys have anything to eat around here? 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 He started sorting trash out of the two trash cans in the room while this nurse was administering his medications. Bed alarm in use. Pt does not comprehend education on IV nutrition and argues when discussing his potential to aspirate food and drink. Pt now sleeping. wctm
[2021-07-26] MEDS: MORPHINE SULFATE 4 MG/ML DISP.SYRIN. IV PRN ×3 (03:20→22:59)
[2021-07-26 05:00] VITALS: BP 110/68
[2021-07-26] MEDS: PIPERACILLIN/TAZOBACTAM 3.375 GM in IV NORMAL SALINE 50ML 50 ML IV SCH ×5 (06:00→22:59)
[2021-07-26] MEDS: LACTOBACILLUS RHAMNOSUS GG 1 CAPSULE. PO SCH ×2 (07:12→20:37)
[2021-07-26] MEDS: ZIPRASIDONE IM 20 MG VIAL. IM SCH ×2 (08:57→20:37)
--- NOTE | 2021-07-26 09:07 | PN ---
DATE: 07/26/2021 ATTENDING PHYSICIAN: Dr. Scruggs. SUBJECTIVE: Calm, he is not agitated, in no obvious distress. Unfortunately, he is not aware of person or time. OBJECTIVE FINDINGS: VITAL SIGNS: Blood pressure this morning is 130/69, pulse is 74 and regular. He is afebrile. Oxygen saturation 95% on room air. HEENT: Head is without trauma. Pupils are reactive. Sclerae nonicteric. Oropharynx clear. NECK: Supple, no bruits. LUNGS: Good breath sounds. CARDIOVASCULAR: Showed regular heart tones. ABDOMEN: Soft. EXTREMITIES: Without edema. NEUROLOGIC: Pleasantly confused. ASSESSMENT: 1. An 81-year-old gentleman from the [facility] unit with aspiration pneumonia. 2. Acute hypoxemic respiratory failure on admission, now improved with stable oxygen saturation on room air. 3. Interstitial lung disease. 4. Chronic obstructive pulmonary disease by history. 5. Chronic anemia. 6. Profound dementia with behavioral issues. PLAN: 1. Continue Clinimix as ordered. 2. Await placement. 3. Continue antibiotics as scheduled. 4. Psychiatric meds reviewed. ALEXIS DR: Ovidio TID: [id number]
[2021-07-26] MEDS: ENOXAPARIN 40 MG/0.4 ML SYRINGE. SQ SCH (11:39)
[2021-07-26] MEDS: AA 4.25 %/CALCIUM/LYTES/D5W 2,000 ML IV SCH (15:00)
--- NOTE | 2021-07-26 17:40 | NUR ---
PT GIVEN MORPHINE ONCE TODAY FOR HUNGER PAINS. PT SLEPT MOST OF THE DAY. PT GIVEN A BLANKET TO FOLD AND THAT KEEPS HIM OCCUPIED. PT DID NOT TRY TO CLIMB OUT OF BED TODAY. PT VERY CHEERFUL.
[2021-07-26 20:07] VITALS: BP 98/58
--- NOTE | 2021-07-26 20:43 | PDOC ---
Exam Note: Сергей Note: Please also refer to the separate dictated note~for this date of service dictated separately.~Patient seen individually. Discussed the patient with Nursing staff reviewed the chart.~Reviewed interim history and current functioning. Reviewed vital signs,~Labs/ Radiology~and current medications noted below. Continue current treatment with the changes noted in the dictated addendum note Assessment: Vital Signs/I&O: Vital Signs Date Time Temp Pulse Resp B/P (MAP) Pulse Ox O2 Delivery O2 Flow Rate FiO2 07/26/21 20:07 97.1 70 18 98/58 (71) 96 Room Air 07/26/21 03:50 2.0 I & O 07/25/21 07/25/21 07/26/21 15:00 23:00 07:00 Intake Total 0 ml 50 ml Output Total 800 ml 650 ml Balance 0 ml -800 ml -600 ml Current Medications: Meds: Current Medications Medications (Trade) Dose Ordered Sig/Donte Route PRN Reason Start Time Stop Time Status Last Admin Dose Admin Dextrose/Sodium Chloride 1,000 ml @ 75 mls/hr [id number] IV 07/18/21 19:00 07/19/21 00:31 DC Piperacillin Sod/ Tazobactam Sod 3.375 gm/Sodium Chloride 50 ml @ 100 mls/hr Q6HRS IV 07/19/21 00:00 07/26/21 17:33 Dextrose/Sodium Chloride 1,000 ml @ 75 mls/hr [id number] IV 07/18/21 19:30 07/21/21 14:29 DC 07/21/21 14:10 Piperacillin Sod/ Tazobactam Sod 3.375 gm/Sodium Chloride 50 ml @ 100 mls/hr Q6HRS IV 07/19/21 00:00 UNV Olanzapine (ZyPREXA IM) 2.5 mg PRN Q4HRS PRN IM 1ST CHOICE AGITATION 07/18/21 19:30 07/25/21 02:39 Acetaminophen (Tylenol Supp) 650 mg PRN Q6HRS PRN [place] MILD PAIN / TEMP > 100.3'F 07/18/21 19:30 07/18/21 19:47 Haloperidol Lactate (Haldol) 5 mg PRN Q4HRS PRN IVP 2ND CHOICE AGITATION 07/18/21 21:00 07/19/21 11:58 DC 07/19/21 07:07 Influenza Virus Vaccine Quadrival (Flulaval Quad Syringe) 0.5 ml ONCE ONCE VAX IM 07/20/21 09:00 07/20/21 09:01 DC Lactobacillus Rhamnosus (Culturelle) 1 cap BID PO 07/19/21 09:00 07/20/21 20:01 Enoxaparin Sodium (Lovenox 40mg Syringe) 40 mg Q24H SQ 07/19/21 12:00 07/26/21 11:39 Haloperidol Lactate (Haldol) 5 mg PRN Q4HRS PRN IM 2ND CHOICE AGITATION 07/19/21 11:58 07/24/21 15:28 Morphine Sulfate (Morphine 4mg Syringe) 4 mg PRN Q4HRS PRN IV PAIN 07/19/21 18:15 07/26/21 08:57 Ziprasidone (Geodon Im) 20 mg BID IM 07/19/21 19:00 07/26/21 20:37 Amino Acids/ Electrolytes/ Dextrose 1,000 ml @ 80 mls/hr [id number] IV 07/21/21 14:30 07/21/21 14:52 DC Amino Acids/ Electrolytes/ Dextrose 2,000 ml @ 80 mls/hr Q24H IV 07/21/21 15:00 07/26/21 15:00 I have reviewed the current psychotropics carefully including drug interactions. Risk benefit ratio favors no change other than as noted in my dictated progress note. Diagnosis: Problems: (1) Impulse control disorder, unspecified (2) Anxiety disorder, unspecified (3) Dementia, vascular, with depression (4) Dementia, vascular, with delusions (5) Dementia in Alzheimer's disease with depression (6) Dementia in Alzheimer's disease with delusions (7) Dementia of the Alzheimer's type with early onset with behavioral disturbance (8) Major neurocognitive disorder YEHUDA BLOOM MD Jul 26, 2021 20:43
[2021-07-27] MEDS: PIPERACILLIN/TAZOBACTAM 3.375 GM in IV NORMAL SALINE 50ML 50 ML IV SCH ×4 (04:47→23:34)
[2021-07-27] MEDS: MORPHINE SULFATE 4 MG/ML DISP.SYRIN. IV PRN ×3 (04:47→17:45)
[2021-07-27 05:48] VITALS: BP 105/62
[2021-07-27] MEDS: LACTOBACILLUS RHAMNOSUS GG 1 CAPSULE. PO SCH ×2 (07:40→21:00)
--- NOTE | 2021-07-27 08:31 | PDOC ---
Exam Note: Сергей Note: This note is a late entry for 07/25/2021 covers elements not covered in my initial note. Subjective: Patient was seen individually in the evening of 07/25/2021. Discussed with nursing staff, reviewed the chart. Overall the patient is confused but less agitated. His mitts were removed in the afternoon and he has handled it quite well, not pulling on IV lines. He was watching TV show in the evening as I met with him. He is pleasant, asked me to sit down, unaware of where he was Review of Systems: Ambulation remains impaired. No CV, , pulmonary, eye, ENT system symptoms on review. Mental Status Exam: The patient is oriented to himself. Insight, judgment, recent and remote memory, attention and concentration, fund of knowledge is poor consistent with his diagnosis. Laboratory Data: Reviewed. Impression: Major neurocognitive disorder, Alzheimer, vascular with delusion, depression behavioral disturbance. Anxiety disorder unspecified. Impulse control disorder unspecified. Plan: The patient remains on IM Geodon b.i.d. and seems to be tolerating well. Whenever he can be changed to oral medication that can be done at that time. Assessment: Vital Signs/I&O: Vital Signs Date Time Temp Pulse Resp B/P (MAP) Pulse Ox O2 Delivery O2 Flow Rate FiO2 07/27/21 05:48 97.6 69 18 105/62 (76) 94 Room Air 07/26/21 03:50 2.0 I & O 07/26/21 07/26/21 07/27/21 15:00 23:00 07:00 Intake Total 0 ml 0 ml 280 ml Output Total 650 ml 950 ml Balance 0 ml -650 ml -670 ml Current Medications: Meds: Current Medications Medications (Trade) Dose Ordered Sig/Donte Route PRN Reason Start Time Stop Time Status Last Admin Dose Admin Dextrose/Sodium Chloride 1,000 ml @ 75 mls/hr [id number] IV 07/18/21 19:00 07/19/21 00:31 DC Piperacillin Sod/ Tazobactam Sod 3.375 gm/Sodium Chloride 50 ml @ 100 mls/hr Q6HRS IV 07/19/21 00:00 07/27/21 04:47 Dextrose/Sodium Chloride 1,000 ml @ 75 mls/hr [id number] IV 07/18/21 19:30 07/21/21 14:29 DC 07/21/21 14:10 Piperacillin Sod/ Tazobactam Sod 3.375 gm/Sodium Chloride 50 ml @ 100 mls/hr Q6HRS IV 07/19/21 00:00 UNV Olanzapine (ZyPREXA IM) 2.5 mg PRN Q4HRS PRN IM 1ST CHOICE AGITATION 07/18/21 19:30 07/25/21 02:39 Acetaminophen (Tylenol Supp) 650 mg PRN Q6HRS PRN [place] MILD PAIN / TEMP > 100.3'F 07/18/21 19:30 07/18/21 19:47 Haloperidol Lactate (Haldol) 5 mg PRN Q4HRS PRN IVP 2ND CHOICE AGITATION 07/18/21 21:00 07/19/21 11:58 DC 07/19/21 07:07 Influenza Virus Vaccine Quadrival (Flulaval Quad [id number] Syringe) 0.5 ml ONCE ONCE VAX IM 07/20/21 09:00 07/20/21 09:01 DC Lactobacillus Rhamnosus (Culturelle) 1 cap BID PO 07/19/21 09:00 07/20/21 20:01 Enoxaparin Sodium (Lovenox 40mg Syringe) 40 mg Q24H SQ 07/19/21 12:00 07/26/21 11:39 Haloperidol Lactate (Haldol) 5 mg PRN Q4HRS PRN IM 2ND CHOICE AGITATION 07/19/21 11:58 07/24/21 15:28 Morphine Sulfate (Morphine 4mg Syringe) 4 mg PRN Q4HRS PRN IV PAIN 07/19/21 18:15 07/27/21 04:47 Ziprasidone (Geodon Im) 20 mg BID IM 07/19/21 19:00 07/26/21 20:37 Amino Acids/ Electrolytes/ Dextrose 1,000 ml @ 80 mls/hr [id number] IV 07/21/21 14:30 07/21/21 14:52 DC Amino Acids/ Electrolytes/ Dextrose 2,000 ml @ 80 mls/hr Q24H IV 07/21/21 15:00 07/26/21 15:00 I have reviewed the current psychotropics carefully including drug interactions. Risk benefit ratio favors no change other than as noted in my dictated progress note. Diagnosis: Problems: (1) Impulse control disorder, unspecified (2) Anxiety disorder, unspecified (3) Dementia, vascular, with depression (4) Dementia, vascular, with delusions (5) Dementia in Alzheimer's disease with depression (6) Dementia in Alzheimer's disease with delusions (7) Dementia of the Alzheimer's type with early onset with behavioral disturbance (8) Major neurocognitive disorder YEHUDA BLOOM MD Jul 27, 2021 08:31
--- NOTE | 2021-07-27 08:45 | PDOC ---
Exam Note: Сергей Note: This note is a late entry for 07/26/2021 covers elements not covered in my initial note. Subjective: Patient was seen individually in the evening of 07/26/2021, reviewed the chart. The patients mitts have been remained off. He has been quite cooperative. Again he was watching TV and very pleasant and welcoming as I met with him. Review of Systems: Ambulation remains impaired. No CV, , pulmonary, eye, ENT system symptoms on review. Mental Status Exam: The patient is oriented to himself. He is pleasant, smiling. Insight, judgment, recent and remote memory, attention and concentration, fund of knowledge is poor consistent with his diagnosis. No clear psychotic symptoms. Laboratory Data: Reviewed. Impression: Major neurocognitive disorder, Alzheimer, vascular with delusion, depression behavioral disturbance. Anxiety disorder unspecified. Impulse control disorder unspecified. Plan: Continue current psychotropics unchanged. Assessment: Vital Signs/I&O: Vital Signs Date Time Temp Pulse Resp B/P (MAP) Pulse Ox O2 Delivery O2 Flow Rate FiO2 07/27/21 05:48 97.6 69 18 105/62 (76) 94 Room Air 07/26/21 03:50 2.0 I & O 07/26/21 07/26/21 07/27/21 15:00 23:00 07:00 Intake Total 0 ml 0 ml 280 ml Output Total 650 ml 950 ml Balance 0 ml -650 ml -670 ml Current Medications: Meds: Current Medications Medications (Trade) Dose Ordered Sig/Donte Route PRN Reason Start Time Stop Time Status Last Admin Dose Admin Dextrose/Sodium Chloride 1,000 ml @ 75 mls/hr [id number] IV 07/18/21 19:00 07/19/21 00:31 DC Piperacillin Sod/ Tazobactam Sod 3.375 gm/Sodium Chloride 50 ml @ 100 mls/hr Q6HRS IV 07/19/21 00:00 07/27/21 04:47 Dextrose/Sodium Chloride 1,000 ml @ 75 mls/hr [id number] IV 07/18/21 19:30 07/21/21 14:29 DC 07/21/21 14:10 Piperacillin Sod/ Tazobactam Sod 3.375 gm/Sodium Chloride 50 ml @ 100 mls/hr Q6HRS IV 07/19/21 00:00 UNV Olanzapine (ZyPREXA IM) 2.5 mg PRN Q4HRS PRN IM 1ST CHOICE AGITATION 07/18/21 19:30 07/25/21 02:39 Acetaminophen (Tylenol Supp) 650 mg PRN Q6HRS PRN [place] MILD PAIN / TEMP > 100.3'F 07/18/21 19:30 07/18/21 19:47 Haloperidol Lactate (Haldol) 5 mg PRN Q4HRS PRN IVP 2ND CHOICE AGITATION 07/18/21 21:00 07/19/21 11:58 DC 07/19/21 07:07 Influenza Virus Vaccine Quadrival (Flulaval Quad [id number] Syringe) 0.5 ml ONCE ONCE VAX IM 07/20/21 09:00 07/20/21 09:01 DC Lactobacillus Rhamnosus (Culturelle) 1 cap BID PO 07/19/21 09:00 07/20/21 20:01 Enoxaparin Sodium (Lovenox 40mg Syringe) 40 mg Q24H SQ 07/19/21 12:00 07/26/21 11:39 Haloperidol Lactate (Haldol) 5 mg PRN Q4HRS PRN IM 2ND CHOICE AGITATION 07/19/21 11:58 07/24/21 15:28 Morphine Sulfate (Morphine 4mg Syringe) 4 mg PRN Q4HRS PRN IV PAIN 07/19/21 18:15 07/27/21 04:47 Ziprasidone (Geodon Im) 20 mg BID IM 07/19/21 19:00 07/26/21 20:37 Amino Acids/ Electrolytes/ Dextrose 1,000 ml @ 80 mls/hr [id number] IV 07/21/21 14:30 07/21/21 14:52 DC Amino Acids/ Electrolytes/ Dextrose 2,000 ml @ 80 mls/hr Q24H IV 07/21/21 15:00 07/26/21 15:00 I have reviewed the current psychotropics carefully including drug interactions. Risk benefit ratio favors no change other than as noted in my dictated progress note. Diagnosis: Problems: (1) Impulse control disorder, unspecified (2) Anxiety disorder, unspecified (3) Dementia, vascular, with depression (4) Dementia, vascular, with delusions (5) Dementia in Alzheimer's disease with depression (6) Dementia in Alzheimer's disease with delusions (7) Dementia of the Alzheimer's type with early onset with behavioral disturbance (8) Major neurocognitive disorder YEHUDA BLOOM MD Jul 27, 2021 08:45
[2021-07-27] MEDS: OLANZapine IM 10 MG VIAL. IM PRN (09:08)
[2021-07-27] MEDS: ZIPRASIDONE IM 20 MG VIAL. IM SCH ×2 (09:09→21:13)
--- NOTE | 2021-07-27 10:00 | NUR ---
Pt found on the floor in room this AM. Bed alarm not working. Garcia catheter and IV removed by pt. Bleeding from penis and stool noted. Pt placed back into bed. No bruising or trauma noted to sacrum, back, or head. Informed Dr. Ramirez of incident. No orders for imaging at this time. Mitts placed and bed exchanged.
[2021-07-27 10:40] VITALS: BP 109/64
--- NOTE | 2021-07-27 13:00 | PN ---
DATE: 07/27/2021 ATTENDING PHYSICIAN: Dr. Scruggs. SUBJECTIVE: The patient is calm this morning. He is bedridden. He is not agitated. OBJECTIVE FINDINGS: VITAL SIGNS: Blood pressure is 105/62, his pulse is 69 and regular. His oxygen saturation 94% on room air and he is afebrile with a temperature of 97.6 degrees Fahrenheit. HEENT: Head is without trauma. Pupils are reactive. Sclerae are nonicteric. Oropharynx is clear. NECK: Supple. No stridor. LUNGS: Fairly good breath sounds. He has minimal inspiratory effort. CARDIOVASCULAR: Showed regular heart tones. No gallops. ABDOMEN: Soft. There is no guarding. There is no rebound tenderness. EXTREMITIES: Showed muscle wasting, without edema. NEUROLOGIC: He is confused and bedridden. LABORATORY DATA: Most recent blood work. His hemoglobin last checked was 10.5 grams. Last chemistries: BUN was 11, creatinine 0.9 mg percent. Electrolytes within normal range. Nonfasting blood sugar 105. ASSESSMENT: 1. An 81-year-old gentleman from the senior behavioral unit with aspiration pneumonia. 2. Hypoxemic respiratory failure on admission. He is now improved and stable with adequate saturations on room air. 3. History of interstitial lung disease. 4. Chronic obstructive pulmonary disease by history. 5. Anemia of chronic disease that is mild. 6. Profound dementia with behavioral issues. PLAN: 1. Await placement. 2. We will look into increased levels of nutrition. We are not able to place a PEG tube here at this hospital at this time. LENA/EVY DR: Ovidio TID: [id number]
[2021-07-27 15:24] VITALS: BP 112/67
[2021-07-27] MEDS: AA 4.25 %/CALCIUM/LYTES/D5W 2,000 ML IV SCH (16:04)
[2021-07-27] MEDS: ENOXAPARIN 40 MG/0.4 ML SYRINGE. SQ SCH (16:04)
[2021-07-27 19:00] VITALS: BP 121/73
--- NOTE | 2021-07-27 20:14 | PDOC ---
Exam Note: Сергей Note: Please also refer to the separate dictated note~for this date of service dictated separately.~Patient seen individually. Discussed the patient with Nursing staff reviewed the chart.~Reviewed interim history and current functioning. Reviewed vital signs,~Labs/ Radiology~and current medications noted below. Continue current treatment with the changes noted in the dictated addendum note Assessment: Vital Signs/I&O: Vital Signs Date Time Temp Pulse Resp B/P (MAP) Pulse Ox O2 Delivery O2 Flow Rate FiO2 07/27/21 17:45 99 Room Air 2.0 07/27/21 15:24 97.9 86 20 112/67 (82) I & O 07/26/21 07/26/21 07/27/21 15:00 23:00 07:00 Intake Total 0 ml 0 ml 280 ml Output Total 650 ml 950 ml Balance 0 ml -650 ml -670 ml Current Medications: Meds: Current Medications Medications (Trade) Dose Ordered Sig/Donte Route PRN Reason Start Time Stop Time Status Last Admin Dose Admin Dextrose/Sodium Chloride 1,000 ml @ 75 mls/hr [id number] IV 07/18/21 19:00 07/19/21 00:31 DC Piperacillin Sod/ Tazobactam Sod 3.375 gm/Sodium Chloride 50 ml @ 100 mls/hr Q6HRS IV 07/19/21 00:00 07/27/21 18:33 Dextrose/Sodium Chloride 1,000 ml @ 75 mls/hr [id number] IV 07/18/21 19:30 07/21/21 14:29 DC 07/21/21 14:10 Piperacillin Sod/ Tazobactam Sod 3.375 gm/Sodium Chloride 50 ml @ 100 mls/hr Q6HRS IV 07/19/21 00:00 UNV Olanzapine (ZyPREXA IM) 2.5 mg PRN Q4HRS PRN IM 1ST CHOICE AGITATION 07/18/21 19:30 07/27/21 09:08 Acetaminophen (Tylenol Supp) 650 mg PRN Q6HRS PRN [place] MILD PAIN / TEMP > 100.3'F 07/18/21 19:30 07/18/21 19:47 Haloperidol Lactate (Haldol) 5 mg PRN Q4HRS PRN IVP 2ND CHOICE AGITATION 07/18/21 21:00 07/19/21 11:58 DC 07/19/21 07:07 Influenza Virus Vaccine Quadrival (Flulaval Quad Syringe) 0.5 ml ONCE ONCE VAX IM 07/20/21 09:00 07/20/21 09:01 DC Lactobacillus Rhamnosus (Culturelle) 1 cap BID PO 07/19/21 09:00 07/20/21 20:01 Enoxaparin Sodium (Lovenox 40mg Syringe) 40 mg Q24H SQ 07/19/21 12:00 07/27/21 16:04 Haloperidol Lactate (Haldol) 5 mg PRN Q4HRS PRN IM 2ND CHOICE AGITATION 07/19/21 11:58 07/24/21 15:28 Morphine Sulfate (Morphine 4mg Syringe) 4 mg PRN Q4HRS PRN IV PAIN 07/19/21 18:15 07/27/21 17:45 Ziprasidone (Geodon Im) 20 mg BID IM 07/19/21 19:00 07/27/21 09:09 Amino Acids/ Electrolytes/ Dextrose 1,000 ml @ 80 mls/hr [id number] IV 07/21/21 14:30 07/21/21 14:52 DC Amino Acids/ Electrolytes/ Dextrose 2,000 ml @ 80 mls/hr Q24H IV 07/21/21 15:00 07/27/21 16:04 I have reviewed the current psychotropics carefully including drug interactions. Risk benefit ratio favors no change other than as noted in my dictated progress note. Diagnosis: Problems: (1) Impulse control disorder, unspecified (2) Anxiety disorder, unspecified (3) Dementia, vascular, with depression (4) Dementia, vascular, with delusions (5) Dementia in Alzheimer's disease with depression (6) Dementia in Alzheimer's disease with delusions (7) Dementia of the Alzheimer's type with early onset with behavioral disturbance (8) Major neurocognitive disorder YEHUDA BLOOM MD Jul 27, 2021 20:14
[2021-07-27 23:00] VITALS: BP 109/67
[2021-07-28 05:00] VITALS: BP 110/63
[2021-07-28] MEDS: PIPERACILLIN/TAZOBACTAM 3.375 GM in IV NORMAL SALINE 50ML 50 ML IV SCH ×2 (05:51→12:07)
--- NOTE | 2021-07-28 06:53 | PDOC ---
Exam Note: Сергей Note: This note is a late entry for 07/27/2021 covers elements not covered in my initial note. Subjective: Patient was seen on rounds of 07/27/2021. Discussed with nursing staff, reviewed the chart. The patients mitts have been remained off. He had a slightly difficult day today. He has been agitated, pulled out his catheter and IV lines. His mitts have had to be placed on him once again. This evening as I met with him he was calmer. He does get psychotic at times. Review of Systems: Ambulation remains impaired. No CV, , pulmonary, eye, ENT system symptoms on review. Mental Status Exam: The patient is oriented to himself. Insight, judgment, recent and remote memory, attention and concentration, fund of knowledge is poor consistent with his diagnosis. Laboratory Data: Reviewed. Impression: Major neurocognitive disorder, Alzheimer, vascular with delusion, depression behavioral disturbance. Anxiety disorder unspecified. Impulse control disorder unspecified. Plan: Given his increased psychosis and agitation, we will increase Geodon from 20 mg IM twice a day to 40 mg in the morning and 20 mg in the evening. Check EKG for QT-corrected interval since we are increasing the Geodon. Rest psychotropics unchanged for now. Assessment: Vital Signs/I&O: Vital Signs Date Time Temp Pulse Resp B/P (MAP) Pulse Ox O2 Delivery O2 Flow Rate FiO2 07/28/21 05:00 97.5 63 18 110/63 (79) 99 Room Air 07/27/21 17:45 2.0 I & O 07/27/21 07/27/21 07/28/21 15:00 23:00 07:00 Intake Total 50 ml 100 ml Output Total 250 ml 200 ml Balance -200 ml -100 ml Current Medications: Meds: Current Medications Medications (Trade) Dose Ordered Sig/Donte Route PRN Reason Start Time Stop Time Status Last Admin Dose Admin Dextrose/Sodium Chloride 1,000 ml @ 75 mls/hr [id number] IV 07/18/21 19:00 07/19/21 00:31 DC Piperacillin Sod/ Tazobactam Sod 3.375 gm/Sodium Chloride 50 ml @ 100 mls/hr Q6HRS IV 07/19/21 00:00 07/28/21 05:51 Dextrose/Sodium Chloride 1,000 ml @ 75 mls/hr [id number] IV 07/18/21 19:30 07/21/21 14:29 DC 07/21/21 14:10 Piperacillin Sod/ Tazobactam Sod 3.375 gm/Sodium Chloride 50 ml @ 100 mls/hr Q6HRS IV 07/19/21 00:00 UNV Olanzapine (ZyPREXA IM) 2.5 mg PRN Q4HRS PRN IM 1ST CHOICE AGITATION 07/18/21 19:30 07/27/21 09:08 Acetaminophen (Tylenol Supp) 650 mg PRN Q6HRS PRN [place] MILD PAIN / TEMP > 100.3'F 07/18/21 19:30 07/18/21 19:47 Haloperidol Lactate (Haldol) 5 mg PRN Q4HRS PRN IVP 2ND CHOICE AGITATION 07/18/21 21:00 07/19/21 11:58 DC 07/19/21 07:07 Influenza Virus Vaccine Quadrival (Flulaval Quad [id number] Syringe) 0.5 ml ONCE ONCE VAX IM 07/20/21 09:00 07/20/21 09:01 DC Lactobacillus Rhamnosus (Culturelle) 1 cap BID PO 07/19/21 09:00 07/20/21 20:01 Enoxaparin Sodium (Lovenox 40mg Syringe) 40 mg Q24H SQ 07/19/21 12:00 07/27/21 16:04 Haloperidol Lactate (Haldol) 5 mg PRN Q4HRS PRN IM 2ND CHOICE AGITATION 07/19/21 11:58 07/24/21 15:28 Morphine Sulfate (Morphine 4mg Syringe) 4 mg PRN Q4HRS PRN IV PAIN 07/19/21 18:15 07/27/21 17:45 Ziprasidone (Geodon Im) 20 mg BID IM 07/19/21 19:00 07/27/21 21:44 DC 07/27/21 21:13 Amino Acids/ Electrolytes/ Dextrose 1,000 ml @ 80 mls/hr [id number] IV 07/21/21 14:30 07/21/21 14:52 DC Amino Acids/ Electrolytes/ Dextrose 2,000 ml @ 80 mls/hr Q24H IV 07/21/21 15:00 07/27/21 16:04 Ziprasidone (Geodon Im) 20 mg HS IM 07/28/21 21:00 Ziprasidone (Geodon Im) 40 mg DAILY IM 07/28/21 09:00 I have reviewed the current psychotropics carefully including drug interactions. Risk benefit ratio favors no change other than as noted in my dictated progress note. Diagnosis: Problems: (1) Impulse control disorder, unspecified (2) Anxiety disorder, unspecified (3) Dementia, vascular, with depression (4) Dementia, vascular, with delusions (5) Dementia in Alzheimer's disease with depression (6) Dementia in Alzheimer's disease with delusions (7) Dementia of the Alzheimer's type with early onset with behavioral disturbance (8) Major neurocognitive disorder YEHUDA BLOOM MD Jul 28, 2021 06:53
[2021-07-28] MEDS: LACTOBACILLUS RHAMNOSUS GG 1 CAPSULE. PO SCH ×2 (07:14→19:42)
[2021-07-28] MEDS: MORPHINE SULFATE 4 MG/ML DISP.SYRIN. IV PRN ×2 (08:14→12:23)
[2021-07-28] MEDS: ZIPRASIDONE IM 20 MG VIAL. IM SCH ×2 (08:15→19:43)
[2021-07-28] MEDS: AA 4.25 %/CALCIUM/LYTES/D5W 2,000 ML IV SCH (08:16)
[2021-07-28] MEDS: ENOXAPARIN 40 MG/0.4 ML SYRINGE. SQ SCH (12:07)
--- NOTE | 2021-07-28 15:15 | NUR ---
PT TRYING TO CLIMB OUT OF BED MULTIPLE TIMES TODAY. BED ALARM AND CHAIR ALARM ON. YELLOW NON-SKID SLIPPERS ON. PT RESTING ON AND OFF TODAY. PT GIVEN MORPHINE FOR HUNGER PAINS AND TO TRY TO HELP PT RELAX. PT PULLED OUT IV. NEW ONE PLACED. PT WILL TRY TO GET UP TO USE THE RESTROOM. STAFF ASSIST PT AT THE SIDE OF THE BED WITH THE URINAL. MOST TIMES, PT HAS ALREADY WET BRIEF, BUT WILL STILL URINATE IN THE URINAL. PT HAD A SHOWER TODAY AND SAT UP IN THE CHAIR FOR A FEW HOURS. AT ONE POINT, THIS RN WAS TRYING TO REDIRECT PT TO WATCH TV, PT STATED "I'D RATHER WATCH YOU" AND PATTED THIS RN'S HIP. PT WORKED WITH PT/OT TODAY. MITTS WERE USED AT THE BEGINNING OF THE DAY, BUT SEEM TO AGITATE PT. DR. BOJORQUEZ ASKED ABOUT STOPPING IV ANTIBIOTICS, HE STATED HE WOULD LET DR. BURT TAKE CARE OF IT SINCE HE IS THE ONE THAT PRESCRIBED THE MEDICATIONS.
--- NOTE | 2021-07-28 16:20 | NUR ---
PT PULLED OUT ANOTHER IV, DESPITE BEING COVERED. DR. BOJORQUEZ DC'D IV ABX.
[2021-07-28 19:49] VITALS: BP 129/70
--- NOTE | 2021-07-28 21:02 | PDOC ---
Exam Note: Сергей Note: Please also refer to the separate dictated note~for this date of service dictated separately.~Patient seen individually. Discussed the patient with Nursing staff reviewed the chart.~Reviewed interim history and current functioning. Reviewed vital signs,~Labs/ Radiology~and current medications noted below. Continue current treatment with the changes noted in the dictated addendum note Assessment: Vital Signs/I&O: Vital Signs Date Time Temp Pulse Resp B/P (MAP) Pulse Ox O2 Delivery O2 Flow Rate FiO2 07/28/21 19:49 97.8 85 18 129/70 (89) 96 Room Air 07/27/21 17:45 2.0 I & O 07/27/21 07/27/21 07/28/21 15:00 23:00 07:00 Intake Total 50 ml 100 ml Output Total 250 ml 200 ml Balance -200 ml -100 ml Current Medications: Meds: Current Medications Medications (Trade) Dose Ordered Sig/Donte Route PRN Reason Start Time Stop Time Status Last Admin Dose Admin Dextrose/Sodium Chloride 1,000 ml @ 75 mls/hr [id number] IV 07/18/21 19:00 07/19/21 00:31 DC Piperacillin Sod/ Tazobactam Sod 3.375 gm/Sodium Chloride 50 ml @ 100 mls/hr Q6HRS IV 07/19/21 00:00 07/28/21 16:17 DC 07/28/21 12:07 Dextrose/Sodium Chloride 1,000 ml @ 75 mls/hr [id number] IV 07/18/21 19:30 07/21/21 14:29 DC 07/21/21 14:10 Piperacillin Sod/ Tazobactam Sod 3.375 gm/Sodium Chloride 50 ml @ 100 mls/hr Q6HRS IV 07/19/21 00:00 UNV Olanzapine (ZyPREXA IM) 2.5 mg PRN Q4HRS PRN IM 1ST CHOICE AGITATION 07/18/21 19:30 07/27/21 09:08 Acetaminophen (Tylenol Supp) 650 mg PRN Q6HRS PRN [place] MILD PAIN / TEMP > 100.3'F 07/18/21 19:30 07/18/21 19:47 Haloperidol Lactate (Haldol) 5 mg PRN Q4HRS PRN IVP 2ND CHOICE AGITATION 07/18/21 21:00 07/19/21 11:58 DC 07/19/21 07:07 Influenza Virus Vaccine Quadrival (Flulaval Quad [id number] Syringe) 0.5 ml ONCE ONCE VAX IM 07/20/21 09:00 07/20/21 09:01 DC Lactobacillus Rhamnosus (Culturelle) 1 cap BID PO 07/19/21 09:00 07/20/21 20:01 Enoxaparin Sodium (Lovenox 40mg Syringe) 40 mg Q24H SQ 07/19/21 12:00 07/28/21 12:07 Haloperidol Lactate (Haldol) 5 mg PRN Q4HRS PRN IM 2ND CHOICE AGITATION 07/19/21 11:58 07/24/21 15:28 Morphine Sulfate (Morphine 4mg Syringe) 4 mg PRN Q4HRS PRN IV PAIN 07/19/21 18:15 07/28/21 12:23 Ziprasidone (Geodon Im) 20 mg BID IM 07/19/21 19:00 07/27/21 21:44 DC 07/27/21 21:13 Amino Acids/ Electrolytes/ Dextrose 1,000 ml @ 80 mls/hr [id number] IV 07/21/21 14:30 07/21/21 14:52 DC Amino Acids/ Electrolytes/ Dextrose 2,000 ml @ 80 mls/hr Q24H IV 07/21/21 15:00 07/28/21 08:16 Ziprasidone (Geodon Im) 20 mg HS IM 07/28/21 21:00 07/28/21 19:43 Ziprasidone (Geodon Im) 40 mg DAILY IM 07/28/21 09:00 07/28/21 08:15 Current Medications Medications (Trade) Dose Ordered Sig/Donte Route PRN Reason Start Time Stop Time Status Last Admin Dose Admin Ziprasidone (Geodon Im) 20 mg HS IM 07/28/21 21:00 07/28/21 19:43 Ziprasidone (Geodon Im) 40 mg DAILY IM 07/28/21 09:00 07/28/21 08:15 I have reviewed the current psychotropics carefully including drug interactions. Risk benefit ratio favors no change other than as noted in my dictated progress note. Diagnosis: Problems: (1) Impulse control disorder, unspecified (2) Anxiety disorder, unspecified (3) Dementia, vascular, with depression (4) Dementia, vascular, with delusions (5) Dementia in Alzheimer's disease with depression (6) Dementia in Alzheimer's disease with delusions (7) Dementia of the Alzheimer's type with early onset with behavioral disturbance (8) Major neurocognitive disorder YEHUDA BLOOM MD Jul 28, 2021 21:02
--- NOTE | 2021-07-28 22:55 | PN ---
DATE: 07/28/2021 ATTENDING PHYSICIAN: Dr. Ramirez. SUBJECTIVE: No new complaints. He is calm. The nursing staff was able to get him out on his chair. He can bear weight with a two to one digital marketing assistant; otherwise, very weak, he cannot walk by himself. OBJECTIVE FINDINGS: VITAL SIGNS: Blood pressure this morning is 121/73. He is afebrile. Oxygen saturation 98% on room air. Pulse is 93 and regular. HEENT: Head is without trauma. Pupils are reactive. Sclerae nonicteric. Oropharynx is clear. NECK: Supple, no bruits identified. LUNGS: Good breath sounds. Minimal rhonchi at bases. CARDIOVASCULAR: Regular heart tones. No gallops. ABDOMEN: Soft. EXTREMITIES: Without edema. NEUROLOGIC FINDINGS: Focally intact. Profound confusion without agitation. ASSESSMENT: 1. This 81-year-old gentleman from the senior behavioral unit has asked for aspiration pneumonia. 2. Acute hypoxemic respiratory failure on admission, now improved with stable oxygen saturations on room air. 3. History of interstitial lung disease with chronic obstructive pulmonary disease. 4. Anemia of chronic disease. 5. Profound dementia with behavioral issues. PLAN: 1. We will finish 1 more day of IV antibiotics. 2. We are looking into placement. We are not able to place a PEG tube at this time. TANYA GRANT: Ovidio TID: [phone]
[2021-07-29] MEDS: MORPHINE SULFATE 4 MG/ML DISP.SYRIN. IV PRN ×4 (01:46→16:51)
[2021-07-29] MEDS: LACTOBACILLUS RHAMNOSUS GG 1 CAPSULE. PO SCH ×2 (07:20→19:38)
--- NOTE | 2021-07-29 07:38 | PDOC ---
Exam Note: Сергей Note: This note is a late entry for 07/28/2021 covers elements not covered in my initial note. Subjective: Patient was seen on rounds of 07/28/2021. Discussed with Liane nursing staff, reviewed the chart. Overall the patient continued to be somewhat disruptive. He has pulled out the lines including the catheter. There was a question that the hospital was running out of sterile water for the Geodon and we had considered changing it to Haldol IM but later the staff paged me late in the evening and indicated that the sterile water for injection was available now and we will continue with the Geodon 40 mg IM a.m. and 20 mg p.m. Review of Systems: Ambulation impaired. No CV, , pulmonary, eye, ENT system symptoms on review. Mental Status Exam: The patient is oriented to himself. I met with him in his room. He was watching TV but oblivious of what he was seeing. Insight, judgment, recent and remote memory, attention and concentration, fund of knowledge is poor consistent with his diagnosis. Laboratory Data: Reviewed. Impression: Major neurocognitive disorder, Alzheimer, vascular with delusion, depression behavioral disturbance. Anxiety disorder unspecified. Impulse control disorder unspecified. Plan: Continue current psychotropics including the Geodon IM that was just increased. We are awaiting disposition and placement for him possibly tomorrow. We may need to increase Geodon IM further if needed. Assessment: Vital Signs/I&O: Vital Signs Date Time Temp Pulse Resp B/P (MAP) Pulse Ox O2 Delivery O2 Flow Rate FiO2 07/29/21 02:10 96 Room Air 2.0 07/28/21 19:49 97.8 85 18 129/70 (89) I & O0 07/28/21 07/28/21 07/29/21 15:00 23:00 07:00 Intake Total 0 ml Balance 0 ml Current Medications: Meds: Current Medications Medications (Trade) Dose Ordered Sig/Donte Route PRN Reason Start Time Stop Time Status Last Admin Dose Admin Dextrose/Sodium Chloride 1,000 ml @ 75 mls/hr [id number] IV 07/18/21 19:00 07/19/21 00:31 DC Piperacillin Sod/ Tazobactam Sod 3.375 gm/Sodium Chloride 50 ml @ 100 mls/hr Q6HRS IV 07/19/21 00:00 07/28/21 16:17 DC 07/28/21 12:07 Dextrose/Sodium Chloride 1,000 ml @ 75 mls/hr [id number] IV 07/18/21 19:30 07/21/21 14:29 DC 07/21/21 14:10 Piperacillin Sod/ Tazobactam Sod 3.375 gm/Sodium Chloride 50 ml @ 100 mls/hr Q6HRS IV 07/19/21 00:00 UNV Olanzapine (ZyPREXA IM) 2.5 mg PRN Q4HRS PRN IM 1ST CHOICE AGITATION 07/18/21 19:30 07/27/21 09:08 Acetaminophen (Tylenol Supp) 650 mg PRN Q6HRS PRN IN MILD PAIN / TEMP > 100.3'F 07/18/21 19:30 07/18/21 19:47 Haloperidol Lactate (Haldol) 5 mg PRN Q4HRS PRN IVP 2ND CHOICE AGITATION 07/18/21 21:00 07/19/21 11:58 DC 07/19/21 07:07 Influenza Virus Vaccine Quadrival (Flulaval Quad [id number] Syringe) 0.5 ml ONCE ONCE VAX IM 07/20/21 09:00 07/20/21 09:01 DC Lactobacillus Rhamnosus (Culturelle) 1 cap BID PO 07/19/21 09:00 07/20/21 20:01 Enoxaparin Sodium (Lovenox 40mg Syringe) 40 mg Q24H SQ 07/19/21 12:00 07/28/21 12:07 Haloperidol Lactate (Haldol) 5 mg PRN Q4HRS PRN IM 2ND CHOICE AGITATION 07/19/21 11:58 07/24/21 15:28 Morphine Sulfate (Morphine 4mg Syringe) 4 mg PRN Q4HRS PRN IV PAIN 07/19/21 18:15 07/29/21 01:46 Ziprasidone (Geodon Im) 20 mg BID IM 07/19/21 19:00 07/27/21 21:44 DC 07/27/21 21:13 Amino Acids/ Electrolytes/ Dextrose 1,000 ml @ 80 mls/hr [id number] IV 07/21/21 14:30 07/21/21 14:52 DC Amino Acids/ Electrolytes/ Dextrose 2,000 ml @ 80 mls/hr Q24H IV 07/21/21 15:00 07/28/21 08:16 Ziprasidone (Geodon Im) 20 mg HS IM 07/28/21 21:00 07/28/21 19:43 Ziprasidone (Geodon Im) 40 mg DAILY IM 07/28/21 09:00 07/28/21 08:15 Current Medications Medications (Trade) Dose Ordered Sig/Donte Route PRN Reason Start Time Stop Time Status Last Admin Dose Admin Ziprasidone (Geodon Im) 20 mg HS IM 07/28/21 21:00 07/28/21 19:43 Ziprasidone (Geodon Im) 40 mg DAILY IM 07/28/21 09:00 07/28/21 08:15 I have reviewed the current psychotropics carefully including drug interactions. Risk benefit ratio favors no change other than as noted in my dictated progress note. Diagnosis: Problems: (1) Impulse control disorder, unspecified (2) Anxiety disorder, unspecified (3) Dementia, vascular, with depression (4) Dementia, vascular, with delusions (5) Dementia in Alzheimer's disease with depression (6) Dementia in Alzheimer's disease with delusions (7) Dementia of the Alzheimer's type with early onset with behavioral disturbance (8) Major neurocognitive disorder YEHUDA BLOOM MD Jul 29, 2021 07:38
[2021-07-29] MEDS: ZIPRASIDONE IM 20 MG VIAL. IM SCH ×2 (08:04→21:28)
[2021-07-29 09:15] VITALS: BP 105/57
--- NOTE | 2021-07-29 10:09 | NUR ---
PT RESTING IN BED THIS MORNING. PT TRIED TO GET OUT OF BED TO USE THE RESTROOM THIS MORNING. PT EASILY REDIRECTED.
[2021-07-29] MEDS: ENOXAPARIN 40 MG/0.4 ML SYRINGE. SQ SCH (12:14)
[2021-07-29] MEDS: AA 4.25 %/CALCIUM/LYTES/D5W 2,000 ML IV SCH (16:00)
[2021-07-29 19:16] VITALS: BP 118/61
--- NOTE | 2021-07-29 21:56 | EKG ---
[address] [address] Test Date: 2021-07-28 Test Time: 05:04:04 Pat Name: JULIA SANDERS Department: Room: 109 A Gender: M Timber Sizer: : [id number] Requested By: YEHUDA BLOOM Order Number: [id number] Reading MD: Perfecto Lloyd Measurements Intervals [place] Rate: 62 P: NM: QRS: 71 QRSD: 108 T: 114 QT: 402 QTc: 410 Interpretive Statements SINUS RHYTHM PACS Electronically Signed On 07-31-2021 16:37:51 SCRAP PILER by Perfecto Lloyd
--- NOTE | 2021-07-30 01:32 | PN ---
DATE: 07/29/2021 SUBJECTIVE: The patient is resting, slightly propped up in bed, in no apparent distress. He is profoundly demented, lethargic, but arousable. He continues to be lethargic, does not to eat or drink. He is on PPN. His code status was changed to DNR/DNI. Apparently, as his code status has changed to the court through his conservator. PHYSICAL EXAMINATION: GENERAL: When I saw him this afternoon, he was resting slightly propped up in bed, in no apparent respiratory distress. He was somewhat pale, not jaundiced, cyanosed, no lymphadenopathy, no thyromegaly, no jugular venous distention. No limb edema. VITAL SIGNS: Her heart rate was 64, blood pressure was 105/57, his temperature was 97.4, respiratory rate was 18 and oxygen saturation was 93%. HEAD, EYES, EARS, NOSE, AND THROAT: Normocephalic, atraumatic. NECK: Supple. HEART: Showed normal first and second heart sounds. No gallop, rub or murmur. CHEST: Clear to auscultation, no crepitation or rhonchi. ABDOMEN: Scaphoid, soft, nontender. NEUROLOGIC: He is profoundly demented, but without any obvious lateralizing sign. He is mostly bedbound. He is impulsive and attempts to get out of the bed. His intake and output are incompletely recorded. LABORATORY DATA: His most recent lab work show white cell count 5700, hemoglobin was 10, hematocrit 31, MCV 90 and platelet count 315,000. His most recent chemistry showed a serum sodium 137, potassium 3.9, chloride 104, bicarbonate 27, anion gap of 6, BUN 11, creatinine 0.9. Estimated GFR was 81 mL per minute. His glucose 105, calcium was 8.3, magnesium was 2.4. Total bilirubin, AST, ALT, alkaline phosphatase were normal. Total protein 5.9, albumin was 2.2. ASSESSMENT: 1. Aspiration pneumonia, resolved. 2. Acute hypoxic respiratory failure, resolved. He is now maintaining his oxygen saturation at 96% on room air. 3. Interstitial lung disease. 4. Chronic obstructive pulmonary disease. 5. Chronic anemia. 6. Profound dementia with behavioral disturbances. PLAN: To obviously discharge him to a detention facility. Now, he is a DNR/DNI. KAROLINA DR: Khloe TID: [id number]
--- NOTE | 2021-07-30 01:34 | NUR ---
Patient has been in bed, restless at times. He had bright red urine when urinating, it was reported that he pulled a Garcia catheter out yesterday. He has been able to be verbally redirected and is pleasant and cooperative with staff.
[2021-07-30 05:56] VITALS: BP 118/62
--- NOTE | 2021-07-30 07:45 | PDOC ---
Exam Note: Сергей Note: Late entry for 07/29/2021. Please also refer to the separate dictated note~for this date of service dictated separately.~Patient seen individually. Discussed the patient with Nursing staff reviewed the chart.~Reviewed interim history and current functioning. Reviewed vital signs,~Labs/ Radiology~and current medic ations noted below. Continue current treatment with the changes noted in the dictated addendum note Assessment: Vital Signs/I&O: Vital Signs Date Time Temp Pulse Resp B/P (MAP) Pulse Ox O2 Delivery O2 Flow Rate FiO2 07/30/21 05:56 77 18 118/62 (80) 07/29/21 20:00 Room Air 07/29/21 19:16 97.0 96 07/29/21 02:10 2.0 I & O 07/29/21 07/29/21 07/30/21 15:00 23:00 07:00 Intake Total 0 ml 0 ml 0 ml Output Total 750 ml Balance 0 ml 0 ml -750 ml Current Medications: I have reviewed the current psychotropics carefully including drug interactions. Risk benefit ratio favors no change other than as noted in my dictated progress note. Diagnosis: Problems: (1) Impulse control disorder, unspecified (2) Anxiety disorder, unspecified (3) Dementia, vascular, with depression (4) Dementia, vascular, with delusions (5) Dementia in Alzheimer's disease with depression (6) Dementia in Alzheimer's disease with delusions (7) Dementia of the Alzheimer's type with early onset with behavioral disturbance (8) Major neurocognitive disorder YEHUDA BLOOM MD Jul 30, 2021 07:45
--- NOTE | 2021-07-30 07:46 | PDOC ---
Exam Note: Сергей Note: This note is a late entry for 07/29/2021 covers elements not covered in my initial note. Subjective: Patient was seen on rounds of 07/29/2021. Discussed the patient with nursing staff, reviewed the chart. Reviewed interim history, current functioning. Overall the patient remains confused, but less aggressive, not pulling on his lines. The mitts have been removed and he has handled this well. EKG QT-corrected interval is within normal limits. Review of Systems: Ambulation impaired. No CV, , pulmonary, eye, ENT system symptoms on review. Reliability poor. Mental Status Exam: The patient is oriented to himself. Insight, judgment, recent and remote memory, attention and concentration, fund of knowledge is poor consistent with his diagnosis. Laboratory Data: Reviewed. Impression: Major neurocognitive disorder, Alzheimer, vascular with delusion, depression behavioral disturbance. Anxiety disorder unspecified. Impulse control disorder unspecified. Plan: Continue current psychotropics. He is tolerating the increased Geodon intramuscular 40 mg a.m. and 20 mg evening. Maintain rest of the psychotropics unchanged. Reportedly he has been transitioned to a lower level of care t omorrow. Assessment: Vital Signs/I&O: Vital Signs Date Time Temp Pulse Resp B/P (MAP) Pulse Ox O2 Delivery O2 Flow Rate FiO2 07/30/21 05:56 77 18 118/62 (80) 07/29/21 20:00 Room Air 07/29/21 19:16 97.0 96 07/29/21 02:10 2.0 I & O 07/29/21 07/29/21 07/30/21 15:00 23:00 07:00 Intake Total 0 ml 0 ml 0 ml Output Total 750 ml Balance 0 ml 0 ml -750 ml Current Medications: Meds: Current Medications Medications (Trade) Dose Ordered Sig/Donte Route PRN Reason Start Time Stop Time Status Last Admin Dose Admin Dextrose/Sodium Chloride 1,000 ml @ 75 mls/hr [id number] IV 07/18/21 19:00 07/19/21 00:31 DC Piperacillin Sod/ Tazobactam Sod 3.375 gm/Sodium Chloride 50 ml @ 100 mls/hr Q6HRS IV 07/19/21 00:00 07/28/21 16:17 DC 07/28/21 12:07 Dextrose/Sodium Chloride 1,000 ml @ 75 mls/hr [id number] IV 07/18/21 19:30 07/21/21 14:29 DC 07/21/21 14:10 Piperacillin Sod/ Tazobactam Sod 3.375 gm/Sodium Chloride 50 ml @ 100 mls/hr Q6HRS IV 07/19/21 00:00 UNV Olanzapine (ZyPREXA IM) 2.5 mg PRN Q4HRS PRN IM 1ST CHOICE AGITATION 07/18/21 19:30 07/27/21 09:08 Acetaminophen (Tylenol Supp) 650 mg PRN Q6HRS PRN ID MILD PAIN / TEMP > 100.3'F 07/18/21 19:30 07/18/21 19:47 Haloperidol Lactate (Haldol) 5 mg PRN Q4HRS PRN IVP 2ND CHOICE AGITATION 07/18/21 21:00 07/19/21 11:58 DC 07/19/21 07:07 Influenza Virus Vaccine Quadrival (Flulaval Quad [id number] Syringe) 0.5 ml ONCE ONCE VAX IM 07/20/21 09:00 07/20/21 09:01 DC Lactobacillus Rhamnosus (Culturelle) 1 cap BID PO 07/19/21 09:00 07/20/21 20:01 Enoxaparin Sodium (Lovenox 40mg Syringe) 40 mg Q24H SQ 07/19/21 12:00 07/29/21 12:14 Haloperidol Lactate (Haldol) 5 mg PRN Q4HRS PRN IM 2ND CHOICE AGITATION 07/19/21 11:58 07/24/21 15:28 Morphine Sulfate (Morphine 4mg Syringe) 4 mg PRN Q4HRS PRN IV PAIN 07/19/21 18:15 07/29/21 16:51 Ziprasidone (Geodon Im) 20 mg BID IM 07/19/21 19:00 07/27/21 21:44 DC 07/27/21 21:13 Amino Acids/ Electrolytes/ Dextrose 1,000 ml @ 80 mls/hr [id number] IV 07/21/21 14:30 07/21/21 14:52 DC Amino Acids/ Electrolytes/ Dextrose 2,000 ml @ 80 mls/hr Q24H IV 07/21/21 15:00 12/15/21 16:00 Ziprasidone (Geodon Im) 20 mg HS IM 07/28/21 21:00 07/29/21 21:28 Ziprasidone (Geodon Im) 40 mg DAILY IM 07/28/21 09:00 07/29/21 08:04 I have reviewed the current psychotropics carefully including drug interactions. Risk benefit ratio favors no change other than as noted in my dictated progress note. Diagnosis: Problems: (1) Impulse control disorder, unspecified (2) Anxiety disorder, unspecified (3) Dementia, vascular, with depression (4) Dementia, vascular, with delusions (5) Dementia in Alzheimer's disease with depression (6) Dementia in Alzheimer's disease with delusions (7) Dementia of the Alzheimer's type with early onset with behavioral disturbance (8) Major neurocognitive disorder YEHUDA BLOOM MD Jul 30, 2021 07:46
[2021-07-30] MEDS: LACTOBACILLUS RHAMNOSUS GG 1 CAPSULE. PO SCH (09:00)
[2021-07-30] MEDS: ZIPRASIDONE IM 20 MG VIAL. IM SCH (09:34)
[2021-07-30] MEDS: ENOXAPARIN 40 MG/0.4 ML SYRINGE. SQ SCH (12:51)
[2021-07-30] MEDS: MORPHINE SULFATE 4 MG/ML DISP.SYRIN. IV PRN (15:13)
--- NOTE | 2021-07-30 16:08 | DISCH ---
DISCHARGE ORDERS DISCHARGE DATE: Jul 30, 2021 FINAL DIAGNOSIS Aspiration pneumonia acute respiratory failure CONDITION AT DISCHARGE: Unstable Code Status: DNR/DNI SNF STAY <30 DAYS: No HOSPICE: Yes HOSPICE EVALUATE & TREAT: Yes POST DISCHARGE ORDERS: ACTIVITY ORDERS: Activity as tolerated WEIGHT BEARING STATUS: As tolerated DIET AFTER DISCHARGE: DISCHARGE MEDICATIONS: Home Meds Reported Medications Magnesium Hydroxide (MILK OF MAGNESIA) 2,400 Mg/10 Ml Oral.susp, 2400 MG PO PRN QHS PRN for CONSTIPATION, LIQUID 07/19/21 Acetaminophen (ACETAMINOPHEN) 325 Mg Tablet, 650 MG PO PRN Q6HRS PRN for PAIN, TAB 07/18/21 Mag Hydrox/Aluminum Hyd/Simeth (Mag-Al Hydrox-Simeth Max Susp) 30 Ml Oral.susp, 15 ML PO PRN AFTMEAL PRN for DYSPEPSIA, LIQUID 07/18/21 Magnesium Hydroxide (MILK OF MAGNESIA) 400 Mg/5 Ml Oral.susp, 400 MG PO prn hs for constipation, LIQUID 07/18/21 Olanzapine (OLANZAPINE) 5 Mg Tablet, 2.5 MG PO PRN Q2HR PRN for ANXIETY / AGITATION, TAB 07/18/21 Trazodone Hcl (TRAZODONE HCL) 50 Mg Tablet, 50 MG PO prn hs for sleep, TAB 07/18/21 Quetiapine Fumarate (SEROQUEL XR) 150 Mg Tab.er.24h, 150 MG PO HS for aggression , TAB.SR 07/17/21 Divalproex Sodium (DEPAKOTE ER) 500 Mg Tab.er.24h, 750 MG PO BID for mood, TAB.SR 07/17/21 NAREN BURT MD Jul 30, 2021 16:08
[2021-07-30] MEDS: HALOPERIDOL LACT 5 MG/ML VIAL. IM PRN (17:07)
--- NOTE | 2021-07-30 17:44 | NUR ---
PATIENT IS DISCHARGED TO [facility] IN [place] WITH HOSPICE CARE. REPORT GIVEN TO STAFF NURSE. PATIENT LEFT UNIT VIA STRETCHER PROVIDED BY [employer].
--- NOTE | 2021-07-30 20:36 | DS ---
DATE OF DISCHARGE: 07/30/2021 HOSPITAL COURSE: The patient is an 81-year-old male patient who was originally transferred to [facility] for inpatient psychiatric stabilization. While there, he was noted to be hypoxic with recurrent bouts of cough and was diagnosed with acute hypoxic respiratory failure as well as aspiration pneumonia. He was treated with IV antibiotic and IV fluid. Unfortunately, he is very high aspiration risk; was evaluated by the speech and language pathologist and has consistently demonstrated that he is a high risk aspiration. He was kept n.p.o. and treated with Clinimix. The social services manager contacted his DPOA and given his advanced dementia and multiple comorbidities, a decision was made to discharge him. Will be discharged to [facility] with hospice orders. PHYSICAL EXAMINATION: GENERAL: When I saw him this afternoon, he was resting flat in bed, in no apparent respiratory distress. He was pale, but not jaundiced, cyanosed. No lymphadenopathy, no thyromegaly, no jugular venous distention. No limb edema. VITAL SIGNS: His heart rate was 77, blood pressure was 118/62, temperature was 97, respiratory rate was 18, and oxygen saturation was 96% on room air. HEAD, EYES, EARS, NOSE, AND THROAT: Normocephalic, atraumatic. NECK: Supple. HEART: Showed normal first and second heart sounds. No gallop, rub, or murmur. CHEST: Clear to auscultation, no crepitation or rhonchi. ABDOMEN: Distended, soft, nontender. NEUROLOGIC: He was demented without any obvious lateralizing sign. He is mostly bedbound. He is very high fall risk. DISCHARGE MEDICATIONS: The patient was discharged to continue on all his medications that include Tylenol 650 mg every 6 hours, Depakote 750 twice a day, Mylanta 15 mL after meals as needed, magnesium hydroxide for milk of magnesia 30 mL p.o. daily p.r.n. constipation, olanzapine 2.5 mg every 2 hours, quetiapine fumarate 150 mg at bedtime, trazodone 50 mg at bedtime as needed. FINAL DISCHARGE DIAGNOSES: 1. Aspiration pneumonia. 2. Acute hypoxic respiratory failure. 3. Recurrent aspiration dysphagia with recurrent aspiration. 4. Interstitial lung disease. 5. Chronic obstructive pulmonary disease. 6. Chronic anemia. 7. Profound dementia. ISAAC/OMAR DR: ISAAC/ross TID: [id number]
== END 2021-07-30 17:45 | disposition hospice, inpatient (51) | DRG 177 ==
LOC: ICU 18:08 → 1 SOUTH 07-19 13:09
PROVIDERS: ADMIT Internal Medicine; ATTEND Internal Medicine
DX: J69.0 Pneumonitis due to inhalation of food and vomit (principal); J96.01 Acute respiratory failure with hypoxia; E43 Unspecified severe protein-calorie malnutrition; F01.51 Vascular dementia, unspecified severity, with behavioral disturbance; F02.81 Dementia in other diseases classified elsewhere, unspecified severity, with behavioral disturbance; J44.0 Chronic obstructive pulmonary disease with (acute) lower respiratory infection; D63.8 Anemia in other chronic diseases classified elsewhere; F32.A Depression, unspecified; F41.9 Anxiety disorder, unspecified; F63.9 Impulse disorder, unspecified; G30.9 Alzheimer's disease, unspecified; J84.9 Interstitial pulmonary disease, unspecified; R13.10 Dysphagia, unspecified; Z66 Do not resuscitate; Z74.01 Bed confinement status; Z68.23 Body mass index [BMI] 23.0-23.9, adult
CPT/HCPCS: 36415; 80053; 83735; 85025; 87070; 87205; 93005; J1630; J1650; J2270; J2543; J3486; J3490; 92610; 97116; 97530